=== PATIENT | female | born 1960 | race African-American/Black ===

== ENCOUNTER 2018-06-07 11:27 | Inpatient (IN) | payer MEDICARE, MEDICAID ==
[2018-06-07] VITALS (8 sets, daily range): BP systolic 132–165; BP diastolic 60–86
[~2018-06-07] VITALS: Ht 160 cm; Wt 49.4 kg
[~2018-06-07 11:27] MED LIST: GABAPENTIN100 MG ORAL; IBUPROFEN600 MG ORAL; LISINOPRIL10 MG ORAL; NORCO 5-325 TA1 EACH ORAL
[2018-06-07] MEDS: Albuterol ud Inhalation HHN SCH ×2 (11:51→12:10)
[2018-06-07] MEDS: Ipratropium 0.02% Inh Soln 2.5ml UD HHN SCH ×2 (11:51→12:10)
[2018-06-07] MEDS ORDERED: Sodium Chloride 500ML 500 ML IV ONE (13:00)
[2018-06-07] MEDS ORDERED: Albuterol ud Inhalation HHN ONE (13:00)
[2018-06-07] MEDS ORDERED: Ipratropium 0.02% Inh Soln 2.5ml UD HHN ONE (13:00)
[2018-06-07] MEDS ORDERED: TRUVADA 200 MG1 EAC1 ORAL (13:12)
--- NOTE | 2018-06-07 14:14 | Diagnostic Imaging Report ---
Indication: Dyspnea Comparison: None A single view chest radiograph was obtained. Findings: No definite infiltrate or pulmonary vascular congestion identified. The heart is enlarged. The aorta is mildly enlarged consistent with atherosclerotic vascular disease. The bones are osteopenic. Impression: No acute disease
[2018-06-07] MEDS ORDERED: ADALAT20 MG ORAL (14:47)
[2018-06-07] MEDS ORDERED: PREZISTA600 MG ORAL (14:47)
[2018-06-07] MEDS ORDERED: NORVIR100 MG ORAL (14:47)
[2018-06-07 15:26] LABS: ANION GAP 13 mmol/L (5-15); BLOOD UREA NITROGEN 14 mg/dL (7-18); CALCIUM 7.3 MG/DL (8.5-10.1); CARBON DIOXIDE 17 MMOL/L (21-32); CHLORIDE 111 MMOL/L (98-107); CREATININE 0.9 MG/DL (0.55-1.30); POTASSIUM 3.5 MMOL/L (3.5-5.1); SODIUM 141 MMOL/L (136-145)
[2018-06-07 15:30] LABS: ALANINE AMINOTRANSFERASE 33 U/L (12-78); ALBUMIN 2.3 G/DL (3.4-5.0); ALBUMIN/GLOBULIN RATIO 0.7 (1.0-2.7); ALKALINE PHOSPHATASE 34 U/L (46-116); ASPARTATE AMINO TRANSFERASE 26 U/L (15-37); BILIRUBIN,TOTAL < 0.1 MG/DL (0.2-1.0)
--- NOTE | 2018-06-07 15:41 | Emergency Room Report ---
History of Present Illness General Chief Complaint: Dyspnea/Respdistress Source: Patient Present Illness HPI 57-year-old female presents ED complaining of shortness of breath times one week. Notes history of COPD. Denies cough. Denies chest pain. Denies fevers or chills. No other aggravating relieving factors. Denies any other associated symptoms Allergies: Coded Allergies: SULFAMETHOXAZOLE (Verified Allergy, Unknown, 09/12/15) TRIMETHOPRIM (Verified Allergy, Unknown, 09/12/15) Patient History Past Medical History: HTN, COPD Past Surgical History: none Pertinent Family History: none Social History: Denies: smoking, alcohol use, drug use Last Menstrual Period: years ago Now: No Immunizations: UTD Reviewed Nursing Documentation: PMH: Agreed; PSxH: Agreed Nursing Documentation-PMH Hx Hypertension: Yes Hx COPD: Yes Review of Systems All Other Systems: negative except mentioned in HPI Physical Exam Vital Signs Date Time Temp Pulse Resp B/P (MAP) Pulse Ox O2 Delivery O2 Flow Rate FiO2 06/07/18 11:28 98.4 94 23 156/60 100 Room Air 98.4 06/07/18 11:51 21 Sp02 EP Interpretation: reviewed, normal General Appearance: no apparent distress, alert, GCS 15, non-toxic Head: normocephalic, atraumatic Eyes: bilateral eye normal inspection, bilateral eye PERRL ENT: hearing grossly normal, normal pharynx, no angioedema, normal voice Neck: full range of motion, supple/symm/no masses Respiratory: chest non-tender, decreased breath sounds, speaking full sentences , wheezing Cardiovascular #1: regular rate, rhythm, no edema Cardiovascular #2: 2+ carotid (R), 2+ carotid (L), 2+ radial (R), 2+ radial (L) , 2+ dorsalis pedis (R), 2+ dorsalis pedis (L) Gastrointestinal: normal bowel sounds, non tender, soft, non-distended, no guarding, no rebound Rectal: deferred Genitourinary: normal inspection, no CVA tenderness Musculoskeletal: back normal, gait/station normal, normal range of motion, non- tender Neurologic: alert, oriented x3, responsive, motor strength/tone normal, sensory intact, speech normal Psychiatric: judgement/insight normal, memory normal, mood/affect normal, no suicidal/homicidal ideation Reflexes: 3+ bicep (R), 3+ bicep (L), 3+ tricep (R), 3+ tricep (L), 3+ knee (R) , 3+ knee (L) Skin: normal color, no rash, warm/dry, well hydrated Lymphatic: no adenopathy Procedures Critical Care Time Critical Care Time i. I feel this is a highly complex case requiring extensive working including EKG/Rhythm strip, Xray/CT/US, Blood/urine lab work, repeat exams while in ED, and administration of strong opiates/narcotics for pain control, admission to hospital or close patient follow up. Total time: 30 min bedside evaluation and treatment excludes procedures (EKG). Reason for critical care: COPD, SOB, severe anemia Possible complications: hypotension, hypertension, MO, shock, arrhythmias, metabolic acidosis, end organ damage, respiratory failure. Interventions: labs, ekg, cxr, IVFs. PRBCs Course: patient presenting with SOB x 1 week. h/o COPD. symptoms not improved after nebs. labs drawn - Hb 2.9 (rechecked). h/o anemia. trop 0.055, denies chest pain. PRBCS ordered. Consultations: nursing staff, EMS, family Performed by: Dr Garcia Tolerated well condition = critical j. because of unstable vital signs this patient had a condition that could potentially threaten life or limb. I feel this is a critical patient who required my full attention while patient was considered critical. Total Critical Care Time excluding procedures was greater than 35 minutes Medical Decision Making Diagnostic Impression: Primary Impression: COPD (chronic obstructive pulmonary disease) Qualified Codes: J44.9 - Chronic obstructive pulmonary disease, unspecified Additional Impressions: Dyspnea Qualified Codes: R06.00 - Dyspnea, unspecified Severe anemia ER Course Hospital Course 64-year-old F presenting to ED with SOB. h/o COPD Differential diagnoses include: Pneumonia, CHF exacerbation, pneumothorax, fluid overload Clinical course Patient placed on stretcher. On potline monitor with stable vitals. After initial history and physical, I ordered nebulizer treatments. I ordered labs, IV fluids, EKG, chest x-ray, blood cultures, UA. after breathing treatments patient states she still feels SOB at rest Labs - no leukocytosis noted, hemoglobin/hematocrit 2.9/11.3, electrolytes okay , lactate okay, troponins 0.055 CXR - hyperinflated lungs. no infiltrates EKG - NSR, no acute ischemic changes interpreted by me CBC rechecked and confirms low Hb/HCt. PRBCs ordered. vitals stable Case discussed with Dr. Barksdale and he agreed to the patient to his service for further care and support I feel this is a highly complex case requiring extensive working including EKG/ Rhythm strip, Xray/CT/US, Blood/urine lab work, repeat exams while in ED, and administration of strong opiates/narcotics for pain control, admission to hospital or close patient follow up. Diagnosis - COPD exacerbation, dyspnea, severe anemia Patient admitted to ICU in critical condition Labs Test 06/07/18 14:46 06/07/18 15:35 06/07/18 17:50 06/07/18 20:22 Sodium Level 141 MMOL/L (136-145) Potassium Level 3.5 MMOL/L (3.5-5.1) Chloride Level 111 MMOL/L (98-107) Carbon Dioxide Level 17 MMOL/L (21-32) Anion Gap 13 mmol/L (5-15) Blood Urea Nitrogen 14 mg/dL (7-18) Creatinine 0.9 MG/DL (0.55-1.30) Estimat Glomerular Filtration Rate > 60 mL/min (>60) Glucose Level 131 MG/DL (74-106) Calcium Level 7.3 MG/DL (8.5-10.1) Total Bilirubin < 0.1 MG/DL (0.2-1.0) Aspartate Amino Transf (AST/SGOT) 26 U/L (15-37) Alanine Aminotransferase (ALT/SGPT) 33 U/L (12-78) Alkaline Phosphatase 34 U/L (46-116) Troponin I 0.055 ng/mL (0.000-0.056) Pro-B-Type Natriuretic Peptide 1878 pg/mL (0-125) Total Protein 5.6 G/DL (6.4-8.2) Albumin 2.3 G/DL (3.4-5.0) Globulin 3.3 g/dL Albumin/Globulin Ratio 0.7 (1.0-2.7) White Blood Count 3.5 K/UL (4.8-10.8) Red Blood Count 1.57 M/UL (4.20-5.40) Hemoglobin 2.9 G/DL (12.0-16.0) Hematocrit 11.3 % (37.0-47.0) Mean Corpuscular Volume 72 FL (80-99) Mean Corpuscular Hemoglobin 18.5 PG (27.0-31.0) Mean Corpuscular Hemoglobin Concent 25.8 G/DL (32.0-36.0) Red Cell Distribution Width 18.9 % (11.6-14.8) Platelet Count 189 K/UL (150-450) Mean Platelet Volume 8.0 FL (6.5-10.1) Neutrophils (%) (Auto) % (45.0-75.0) Lymphocytes (%) (Auto) % (20.0-45.0) Monocytes (%) (Auto) % (1.0-10.0) Eosinophils (%) (Auto) % (0.0-3.0) Basophils (%) (Auto) % (0.0-2.0) Differential Total Cells Counted 100 Neutrophils % (Manual) 79 % (45-75) Lymphocytes % (Manual) 18 % (20-45) Monocytes % (Manual) 3 % (1-10) Eosinophils % (Manual) 0 % (0-3) Basophils % (Manual) 0 % (0-2) Band Neutrophils 0 % (0-8) Nucleated Red Blood Cells 2 /100 WBC Platelet Estimate Adequate Platelet Morphology Normal Hypochromasia 3+ Anisocytosis 3+ Microcytosis 1+ Macrocytosis Occasional Prothrombin Time 10.0 SEC (9.30-11.50) Prothromb Time International Ratio 0.9 (0.9-1.1) Activated Partial Thromboplast Time 18 SEC (23-33) Urine Color Pale yellow Urine Appearance Clear Urine pH 6 (4.5-8.0) Urine Specific [place] 1.010 (1.005-1.035) Urine Protein 1+ (NEGATIVE) Urine Glucose (UA) Negative (NEGATIVE) Urine Ketones Negative (NEGATIVE) Urine Occult Blood Negative (NEGATIVE) Urine Nitrite Negative (NEGATIVE) Urine Bilirubin Negative (NEGATIVE) Urine Urobilinogen Normal MG/DL (0.0-1.0) Urine Leukocyte Esterase 2+ (NEGATIVE) Urine RBC 0-2 /HPF (0 - 2) Urine WBC 5-10 /HPF (0 - 2) Urine Squamous Epithelial Cells Few /LPF (NONE/OCC) Urine Bacteria Moderate /HPF (NONE) Urine Mucus Few /LPF (NONE/OCC) Lactic Acid Level 2.70 mmol/L (0.4-2.0) 2.90 mmol/L (0.66-2.22) Test 06/08/18 06:14 EKG Diagnostic Results Rate: normal Rhythm: NSR ST Segments: no acute changes ASA given to the pt in ED: No Rhythm Strip Diag. Results EP Interpretation: yes Rhythm: NSR, no PVC's Chest X-Ray Diagnostic Results Chest X-Ray Diagnostic Results : Chest X-Ray Ordered: Yes # of Views/Limited/Complete: 1 View Indication: Shortness of Breath EP Interpretation: Yes Interpretation: no consolidation, no effusion, no pneumothorax, other - cardiomegaly Impression: Other - cardiomegaly Electronically Signed by: Electronically signed by Jay Garcia MD Last Vital Signs Date Time Temp Pulse Resp B/P (MAP) Pulse Ox O2 Delivery O2 Flow Rate FiO2 06/07/18 12:18 95 19 100 Room Air 21 06/07/18 12:07 98.4 156/60 98.4 Status: improved Disposition: ADMITTED INPATIENT Condition: Critical Referrals: NON PHYSICIAN (PCP) Jay Garcia MD Jun 07, 2018 15:41
[2018-06-07 16:02] LABS: HEMATOCRIT 11.3 % (37.0-47.0); MEAN CORPUSCULAR VOLUME 72 FL (80-99); PLATELET COUNT 189 K/UL (150-450); RED BLOOD COUNT 1.57 M/UL (4.20-5.40); RED CELL DISTRIBUTION WIDTH 18.9 % (11.6-14.8); WHITE BLOOD COUNT 3.5 K/UL (4.8-10.8)
[2018-06-07 16:09] LABS: INR 0.9 (0.9-1.1)
[2018-06-07 16:14] LABS: HEMOGLOBIN 2.9 G/DL (12.0-16.0)
[2018-06-07] MEDS ORDERED: LISINOPRIL10 MG ORAL (17:38)
[2018-06-07] MEDS ORDERED: PREZISTA800 MG ORAL (17:38)
[2018-06-07] MEDS ORDERED: NIFEDIPINE ER60 M2 ORAL (17:41)
[2018-06-07] MEDS ORDERED: LISINOPRIL20 MG ORAL (17:54)
[2018-06-07] MEDS ORDERED: NORCO 10-325 T1 EACH ORAL (17:55)
[2018-06-07] MEDS ORDERED: TYLENOL EXTRA500 MG ORAL (17:58)
[2018-06-07] MEDS ORDERED: VITAMIN B-12100 MCG ORAL (17:58)
[2018-06-07 18:26] LABS: APPEARANCE,URINE CLEAR; BILIRUBIN, URINE NEGATIVE (NEGATIVE); COLOR,URINE PALE YELLOW; GLUCOSE, URINE (UA) NEGATIVE (NEGATIVE); KETONES,URINE NEGATIVE (NEGATIVE); LEUKOCYTE ESTERASE ,URINE 2+ (NEGATIVE); NITRITE,URINE NEGATIVE (NEGATIVE); PH,URINE 6 (4.5-8.0); PROTEIN,URINE 1+ (NEGATIVE); UROBILINOGEN,URINE NORMAL MG/DL (0.0-1.0)
[2018-06-07] MEDS ORDERED: Miralax 17gm pkt ORAL PRN (22:00)
[2018-06-07] MEDS ORDERED: Zolpidem 5mg tab ORAL PRN (22:00)
--- NOTE | 2018-06-07 23:15 | History and Physical Report ---
DATE OF ADMISSION: 06/07/2018 CHIEF COMPLAINT AND REASON FOR HOSPITALIZATION: The patient admitted with weakness and severe anemia. HISTORY OF PRESENT ILLNESS: The patient presents with a hemoglobin of 2.9, no obvious bleeding according to the patient. She has had shortness of breath worsening over the last two months and worsening in the last day generalized weakness. She said she had a bout of gastritis two months ago but this improved. The patient has a history of hypertension, HIV positive. She states she has had iron-deficiency for sometime in the past and has craving for ice. PAST SURGICAL HISTORY: None. ALLERGIES: None known. MEDICATIONS: Include Truvada, Prezista, Norvir, lisinopril, nifedipine, and B12. HABITS: She is a current smoker. Alcohol occasional. Drugs, none. SYSTEM REVIEW: HEAD, EYES, EARS, NOSE, AND THROAT: Vision and hearing is good. ENDOCRINE: No diabetes or thyroid disease. PULMONARY: History of shortness of breath and COPD. No history of tuberculosis. CARDIAC: No angina, [place], or palpitations. GASTROINTESTINAL: No GI bleeding that she is aware of although she has had gastritis. No dark stools. RECTAL: Done in the emergency room showed hemorrhoid and trace positive stool but not grossly melanotic. GENITOURINARY: No dysuria, hematuria, or kidney stones. NEUROLOGIC: No CVA, syncope, or seizures. INFECTIOUS: History of HIV positive. No hepatitis. She has missed her HIV medicines for number of days. PHYSICAL EXAMINATION: GENERAL: The patient is alert lady, lying in bed, in no acute distress. VITAL SIGNS: Temperature was 99.8 and repeat 100.7, pulse 96, respirations 24, blood pressure 147/62, pulse oximetry 96% on room air. HEENT: Sclerae are nonicteric. Her conjunctivae were pale. Throat clear. NECK: No adenopathy. LUNGS: Clear. HEART: Regular rhythm. No murmur. ABDOMEN: Soft. I am unable to feel liver or spleen. EXTREMITIES: No edema, cyanosis or clubbing. RECTAL: Done by the emergency room physician as above. LABORATORY AND DIAGNOSTIC DATA: Pertinent labs show hemoglobin of 2.9, MCV is 72, white count 3.5, platelet 189. Chemistries normal except for glucose 131. Lactic acid 2.7 and troponin 0.055. IMPRESSION: 1. Anemia likely combination of iron-deficiency from gastrointestinal bleeding and possible effect of human immunodeficiency virus and human immunodeficiency virus medications, other etiologies possible. 2. Human immunodeficiency virus. 3. Shortness of breath secondary to anemia and chronic obstructive pulmonary disease. 4. Elevated troponin likely demand ischemia. PLAN: The patient has agreed for transfusion. We will also give her iron and supportive care. We will follow up with serial laboratories and make further recommendations as her condition warrants. Alec Barksdale M.D. DR: Yelitza JOB#: [id number] CC:
[2018-06-08] VITALS (14 sets, daily range): BP systolic 140–174; BP diastolic 74–100
[2018-06-08 06:32] LABS: HEMATOCRIT 22.9 % (37.0-47.0); MEAN CORPUSCULAR VOLUME 80 FL (80-99); PLATELET COUNT 166 K/UL (150-450); RED BLOOD COUNT 2.85 M/UL (4.20-5.40); RED CELL DISTRIBUTION WIDTH 19.3 % (11.6-14.8); WHITE BLOOD COUNT 2.6 K/UL (4.8-10.8)
[2018-06-08 07:02] LABS: HEMOGLOBIN 7.1 G/DL (12.0-16.0)
[2018-06-08 07:03] LABS: ALANINE AMINOTRANSFERASE 31 U/L (12-78); ALBUMIN 2.3 G/DL (3.4-5.0); ALBUMIN/GLOBULIN RATIO 0.6 (1.0-2.7); ALKALINE PHOSPHATASE 33 U/L (46-116); ANION GAP 12 mmol/L (5-15); ASPARTATE AMINO TRANSFERASE 23 U/L (15-37); BILIRUBIN,TOTAL 0.1 MG/DL (0.2-1.0); BLOOD UREA NITROGEN 12 mg/dL (7-18); CALCIUM 7.8 MG/DL (8.5-10.1); CARBON DIOXIDE 17 MMOL/L (21-32); CHLORIDE 109 MMOL/L (98-107); CREATININE 0.8 MG/DL (0.55-1.30); FERRITIN 9 NG/ML (8-388); POTASSIUM 3.7 MMOL/L (3.5-5.1); SODIUM 138 MMOL/L (136-145)
[2018-06-08 07:40] LABS: % IRON SATURATION 3 % (15-50); IRON 12 ug/dL (50-175); TOTAL IRON BINDING CAPACITY 359 ug/dL (250-450)
--- NOTE | 2018-06-08 12:22 | General Progress Note ---
Assessment/Plan Problem List: (1) GI bleed ICD Codes: K92.2 - Gastrointestinal hemorrhage, unspecified SNOMED: 47998936 (2) Iron (Fe) deficiency anemia ICD Codes: D50.9 - Iron deficiency anemia, unspecified SNOMED: 41320758 (3) Dyspnea ICD Codes: R06.00 - Dyspnea, unspecified SNOMED: 751229009 Qualifiers: Qualified Codes: R06.00 - Dyspnea, unspecified (4) COPD (chronic obstructive pulmonary disease) ICD Codes: J44.9 - Chronic obstructive pulmonary disease, unspecified SNOMED: 46129580 Qualifiers: Qualified Codes: J44.9 - Chronic obstructive pulmonary disease, unspecified (5) Severe anemia ICD Codes: D64.9 - Anemia, unspecified SNOMED: 932246755 Subjective Constitutional: Reports: weakness HEENT: Reports: no symptoms Cardiovascular: Reports: no symptoms Respiratory: Reports: SOB with excertion Gastrointestinal/Abdominal: Reports: no symptoms Genitourinary: Reports: no symptoms Endocrine: Reports: no symptoms Hematologic/Lymphatic: Reports: anemia Allergies: Coded Allergies: SULFAMETHOXAZOLE (Verified Allergy, Unknown, 09/12/15) TRIMETHOPRIM (Verified Allergy, Unknown, 09/12/15) Objective Last 24 Hour Vital Signs Date Time Temp Pulse Resp B/P (MAP) Pulse Ox O2 Delivery O2 Flow Rate FiO2 06/08/18 10:00 77 17 156/77 (103) 100 74 06/08/18 09:29 80 174/92 06/08/18 09:00 82 17 174/92 (119) 100 74 06/08/18 08:00 Nasal Cannula 2.0 06/08/18 08:00 98.8 67 17 140/81 (100) 100 98.8 74 06/08/18 08:00 88 06/08/18 07:00 81 21 160/100 (120) 100 74 06/08/18 06:00 77 20 173/90 (117) 100 74 06/08/18 05:00 78 21 146/79 (101) 100 74 06/08/18 04:00 74 21 160/74 (102) 100 74 06/08/18 04:00 Nasal Cannula 2.0 06/08/18 04:00 74 06/08/18 03:00 77 19 167/79 (108) 100 77 7/10/18 02:00 75 19 160/79 (106) 100 77 06/08/18 01:00 77 19 163/92 (115) 100 77 06/08/18 00:00 Nasal Cannula 2.0 06/08/18 00:00 98.4 79 21 157/96 (116) 100 98.4 78 06/08/18 00:00 79 06/07/18 23:00 78 21 132/86 (101) 100 78 06/07/18 22:00 81 21 165/63 (97) 100 84 06/07/18 21:00 98.6 84 21 151/71 (97) 100 98.6 84 06/07/18 21:00 94 06/07/18 21:00 Nasal Cannula 2.0 06/07/18 20:30 99.1 93 22 150/72 100 Room Air 21 99.1 06/07/18 20:05 99.1 93 22 150/72 100 Room Air 99.1 06/07/18 19:22 100.7 06/07/18 18:55 100.7 91 20 100.7 06/07/18 18:40 99.8 91 18 99.8 06/07/18 18:00 96 24 147/62 96 Room Air 06/07/18 16:00 96 23 148/65 100 Room Air 06/07/18 14:00 98.8 23 149/76 100 Room Air 21 98.8 Intake and Output 06/07/18 06/08/18 19:00 07:00 Intake Total 100 ml 1180 ml Output Total 1150 ml Balance 100 ml 30 ml Intake Oral 100 ml 280 ml Blood Product 900 ml Output Urine Total 1150 ml Laboratory Tests 06/07/18 14:46: Sodium Level 141, Potassium Level 3.5, Chloride Level 111H, Carbon Dioxide Level 17L, Anion Gap 13, Blood Urea Nitrogen 14, Creatinine 0.9, Estimat Glomerular Filtration Rate > 60, Glucose Level 131H, Calcium Level 7.3L, Total Bilirubin < 0.1L, Aspartate Amino Transf (AST/SGOT) 26, Alanine Aminotransferase (ALT/SGPT) 33, Alkaline Phosphatase 34L, Troponin I 0.055, Pro- B-Type Natriuretic Peptide 1878H, Total Protein 5.6L, Albumin 2.3L, Globulin 3.3 , Albumin/Globulin Ratio 0.7L 06/07/18 15:35: White Blood Count 3.5L, Red Blood Count 1.57L, Hemoglobin 2.9*L, Hematocrit 11.3L, Mean Corpuscular Volume 72L, Mean Corpuscular Hemoglobin 18.5L, Mean Corpuscular Hemoglobin Concent 25.8L, Red Cell Distribution Width 18.9H, Platelet Count 189, Mean Platelet Volume 8.0, Neutrophils (%) (Auto) , Lymphocytes (%) (Auto) , Monocytes (%) (Auto) , Eosinophils (%) (Auto) , Basophils (%) (Auto) , Differential Total Cells Counted 100, Neutrophils % ( Manual) 79H, Lymphocytes % (Manual) 18L, Monocytes % (Manual) 3, Eosinophils % ( Manual) 0, Basophils % (Manual) 0, Band Neutrophils 0, Nucleated Red Blood Cells 2, Platelet Estimate Adequate, Platelet Morphology Normal, Hypochromasia 3 +, Anisocytosis 3+, Microcytosis 1+, Macrocytosis Occasional, Prothrombin Time 10.0, Prothromb Time International Ratio 0.9, Activated Partial Thromboplast Time 18L 06/07/18 17:50: Urine Color Pale yellow, Urine Appearance Clear, Urine pH 6, Urine Specific [place] 1.010, Urine Protein 1+H, Urine Glucose (UA) Negative, Urine Ketones Negative, Urine Occult Blood Negative, Urine Nitrite Negative, Urine Bilirubin Negative, Urine Urobilinogen Normal, Urine Leukocyte Esterase 2+H, Urine RBC 0-2 , Urine WBC 5-10H, Urine Squamous Epithelial Cells Few, Urine Bacteria ModerateH , Urine Mucus FewH, Lactic Acid Level 2.70H 06/07/18 20:22: Lactic Acid Level 2.90H 06/08/18 06:14: White Blood Count [Pending], Red Blood Count 2.85L, Hemoglobin 7.1#L, Hematocrit 22.9#L, Mean Corpuscular Volume 80#, Mean Corpuscular Hemoglobin 25.1L, Mean Corpuscular Hemoglobin Concent 31.1L, Red Cell Distribution Width 19.3H, Platelet Count 166, Mean Platelet Volume 8.4, Neutrophils (%) (Auto) , Lymphocytes (%) (Auto) , Monocytes (%) (Auto) , Eosinophils (%) (Auto) , Basophils (%) (Auto) , Differential Total Cells Counted 100, Neutrophils % ( Manual) 51, Lymphocytes % (Manual) 38, Monocytes % (Manual) 8, Eosinophils % ( Manual) 1, Basophils % (Manual) 1, Band Neutrophils 1, Lymphocytes [Pending], Nucleated Red Blood Cells 6, Platelet Estimate Adequate, Platelet Morphology Normal, Hypochromasia 3+, Anisocytosis 2+, Reticulocyte Count 1.3, Sodium Level 138, Potassium Level 3.7, Chloride Level 109H, Carbon Dioxide Level 17L, Anion Gap 12, Blood Urea Nitrogen 12, Creatinine 0.8, Estimat Glomerular Filtration Rate > 60, Glucose Level 122H, Lactic Acid Level 1.10, Calcium Level 7.8L, Iron Level 12L, Total Iron Binding Capacity 359, Percent Iron Saturation 3L, Unsaturated Iron Binding 347H, Ferritin 9, Total Bilirubin 0.1L, Aspartate Amino Transf (AST/SGOT) 23, Alanine Aminotransferase (ALT/SGPT) 31, Alkaline Phosphatase 33L, Total Protein 6.2L, Albumin 2.3L, Globulin 3.9, Albumin/ Globulin Ratio 0.6L, Vitamin B12 Level 337, Thyroid Stimulating Hormone (TSH) 0.453, Percent CD3 Cells [Pending], Absolute CD3 Count [Pending], Percent CD4 Cells [Pending], Absolute CD4 Count [Pending], T-Lymphocyte CD4/CD8 Ratio [ Pending], Percent CD8 Cells [Pending], Absolute CD8 Count [Pending] Height (Feet): 5 Height (Inches): 3.00 Weight (Pounds): 117 General Appearance: no apparent distress EENT: normal ENT inspection Neck: normal alignment Cardiovascular: normal rate, regular rhythm Respiratory/Chest: lungs clear Abdomen: soft, no organomegaly Extremities: non-tender Edema: no edema noted Arm (L), no edema noted Arm (R), no edema noted Leg (L), no edema noted Leg (R), no edema noted Pedal (L), no edema noted Pedal (R), no edema noted Generalized MARYANN HOBSON Jun 08, 2018 12:22
--- NOTE | 2018-06-08 12:44 | GI Initial Consult Note ---
History of Present Illness General Date patient seen: Jun 08, 2018 Time patient seen: 12:00 Reason for Hospitalization: Dyspnea/Respdistress Referring physician: MARYANN HOBSON Reason for Consultation: GI BLEED Present Illness HPI The patient presents with a hemoglobin of 2.9, no obvious bleeding according to the patient. She has had shortness of breath worsening over the last two months and worsening in the last day generalized weakness. She said she had a bout of gastritis two months ago but this improved. The patient has a history of hypertension, HIV positive. She states she has had iron-deficiency for sometime in the past and has craving for ice. GI consulted for severe anemia requiring blood transfusion. Pt was seen, downgraded from ICU to tele, awake A&Ox4 NAD with no active s/sx of N/V/D. The patient presented with severe anemia requiring blood transfusion with no obvious signs or symptoms of bleeding. No noted anticoag medication in reconciliation Denies any drug, tobacco or ETOH use. Patient stated she had an EGD in the past, but unsure of results. No history of colonoscopy. Home Meds Reported Medications Acetaminophen* (TYLENOL EXTRA STRENGTH*) 500 Mg Tablet, 500 MG ORAL Q6H PRN for Mild Pain/Temp > 100.5 06/07/18 Cyanocobalamin (Vitamin B-12) 100 Mcg Tablet, 100 MCG ORAL DAILY 06/07/18 Hydrocodone Bit/Acetaminophen 10-325* (NORCO 10-325*) 1 Each Tablet, 1 TAB ORAL Q6H PRN for For Pain PRN PAIN 06/07/18 Lisinopril (LISINOPRIL*) 20 Mg Tablet, 20 MG ORAL DAILY 06/07/18 Nifedipine* (NIFEDIPINE ER*) 60 Mg Tablet.er, 60 MG ORAL DAILY 06/07/18 Darunavir Ethanolate (PREZISTA) 800 Mg Tablet, 800 MG ORAL DAILY 06/07/18 Ritonavir* (NORVIR*) 100 Mg Capsule, 100 MG ORAL DAILY, #60 CAP 06/07/18 Emtricitabine/Tenofovir 200-300MG* (TRUVADA 200-300MG*) 1 Each Tablet, 1 TAB ORAL DAILY, TAB 06/07/18 Discontinued Scripts Gabapentin* (GABAPENTIN*) 100 Mg Capsule, 100 MG ORAL THREE TIMES A DAY, #30 CAP Prov:Sadia Benavides 06/25/16 Ibuprofen* (MOTRIN*) 600 Mg Tablet, 600 MG ORAL Q8H PRN for For Pain, #20 TAB 0 Refills Prov:Mike Leyva MD 09/12/15 Med list reviewed/reconciled: Yes Allergies: Coded Allergies: SULFAMETHOXAZOLE (Verified Allergy, Unknown, 09/12/15) TRIMETHOPRIM (Verified Allergy, Unknown, 09/12/15) Patient History History Provided By: Patient, Medical Record PMH Narrative See HPI. Social History: Denies: smoking, alcohol use, drug use, other Review of Systems All Other Systems: negative except mentioned in HPI Physical Exam Vital Signs Date Time Temp Pulse Resp B/P (MAP) Pulse Ox O2 Delivery O2 Flow Rate FiO2 06/07/18 11:28 98.4 94 23 156/60 100 Room Air 98.4 06/07/18 11:51 21 06/07/18 21:00 2.0 Sp02 EP Interpretation: reviewed, normal Labs Laboratory Tests Test 06/07/18 14:46 06/07/18 15:35 06/07/18 17:50 06/07/18 20:22 Sodium Level 141 MMOL/L (136-145) Potassium Level 3.5 MMOL/L (3.5-5.1) Chloride Level 111 MMOL/L (98-107) H Carbon Dioxide Level 17 MMOL/L (21-32) L Anion Gap 13 mmol/L (5-15) Blood Urea Nitrogen 14 mg/dL (7-18) Creatinine 0.9 MG/DL (0.55-1.30) Estimat Glomerular Filtration Rate > 60 mL/min (>60) Glucose Level 131 MG/DL (74-106) H Calcium Level 7.3 MG/DL (8.5-10.1) L Total Bilirubin < 0.1 MG/DL (0.2-1.0) L Aspartate Amino Transf (AST/SGOT) 26 U/L (15-37) Alanine Aminotransferase (ALT/SGPT) 33 U/L (12-78) Alkaline Phosphatase 34 U/L (46-116) L Troponin I 0.055 ng/mL (0.000-0.056) Pro-B-Type Natriuretic Peptide 1878 pg/mL (0-125) H Total Protein 5.6 G/DL (6.4-8.2) L Albumin 2.3 G/DL (3.4-5.0) L Globulin 3.3 g/dL Albumin/Globulin Ratio 0.7 (1.0-2.7) L White Blood Count 3.5 K/UL (4.8-10.8) L Red Blood Count 1.57 M/UL (4.20-5.40) L Hemoglobin 2.9 G/DL (12.0-16.0) *L Hematocrit 11.3 % (37.0-47.0) L Mean Corpuscular Volume 72 FL (80-99) L Mean Corpuscular Hemoglobin 18.5 PG (27.0-31.0) L Mean Corpuscular Hemoglobin Concent 25.8 G/DL (32.0-36.0) L Red Cell Distribution Width 18.9 % (11.6-14.8) H Platelet Count 189 K/UL (150-450) Mean Platelet Volume 8.0 FL (6.5-10.1) Neutrophils (%) (Auto) % (45.0-75.0) Lymphocytes (%) (Auto) % (20.0-45.0) Monocytes (%) (Auto) % (1.0-10.0) Eosinophils (%) (Auto) % (0.0-3.0) Basophils (%) (Auto) % (0.0-2.0) Differential Total Cells Counted 100 Neutrophils % (Manual) 79 % (45-75) H Lymphocytes % (Manual) 18 % (20-45) L Monocytes % (Manual) 3 % (1-10) Eosinophils % (Manual) 0 % (0-3) Basophils % (Manual) 0 % (0-2) Band Neutrophils 0 % (0-8) Nucleated Red Blood Cells 2 /100 WBC Platelet Estimate Adequate Platelet Morphology Normal Hypochromasia 3+ Anisocytosis 3+ Microcytosis 1+ Macrocytosis Occasional Prothrombin Time 10.0 SEC (9.30-11.50) Prothromb Time International Ratio 0.9 (0.9-1.1) Activated Partial Thromboplast Time 18 SEC (23-33) L Urine Color Pale yellow Urine Appearance Clear Urine pH 6 (4.5-8.0) Urine Specific [place] 1.010 (1.005-1.035) Urine Protein 1+ (NEGATIVE) H Urine Glucose (UA) Negative (NEGATIVE) Urine Ketones Negative (NEGATIVE) Urine Occult Blood Negative (NEGATIVE) Urine Nitrite Negative (NEGATIVE) Urine Bilirubin Negative (NEGATIVE) Urine Urobilinogen Normal MG/DL (0.0-1.0) Urine Leukocyte Esterase 2+ (NEGATIVE) H Urine RBC 0-2 /HPF (0 - 2) Urine WBC 5-10 /HPF (0 - 2) H Urine Squamous Epithelial Cells Few /LPF (NONE/OCC) Urine Bacteria Moderate /HPF (NONE) H Urine Mucus Few /LPF (NONE/OCC) H Lactic Acid Level 2.70 mmol/L (0.4-2.0) H 2.90 mmol/L (0.66-2.22) H Test 06/08/18 06:14 White Blood Count Pending Red Blood Count 2.85 M/UL (4.20-5.40) L Hemoglobin 7.1 G/DL (12.0-16.0) #L Hematocrit 22.9 % (37.0-47.0) #L Mean Corpuscular Volume 80 FL (80-99) # Mean Corpuscular Hemoglobin 25.1 PG (27.0-31.0) L Mean Corpuscular Hemoglobin Concent 31.1 G/DL (32.0-36.0) L Red Cell Distribution Width 19.3 % (11.6-14.8) H Platelet Count 166 K/UL (150-450) Mean Platelet Volume 8.4 FL (6.5-10.1) Neutrophils (%) (Auto) % (45.0-75.0) Lymphocytes (%) (Auto) % (20.0-45.0) Monocytes (%) (Auto) % (1.0-10.0) Eosinophils (%) (Auto) % (0.0-3.0) Basophils (%) (Auto) % (0.0-2.0) Differential Total Cells Counted 100 Neutrophils % (Manual) 51 % (45-75) Lymphocytes % (Manual) 38 % (20-45) Monocytes % (Manual) 8 % (1-10) Eosinophils % (Manual) 1 % (0-3) Basophils % (Manual) 1 % (0-2) Band Neutrophils 1 % (0-8) Lymphocytes Pending Nucleated Red Blood Cells 6 /100 WBC Platelet Estimate Adequate Platelet Morphology Normal Hypochromasia 3+ Anisocytosis 2+ Reticulocyte Count 1.3 % (0.0-2.0) Sodium Level 138 MMOL/L (136-145) Potassium Level 3.7 MMOL/L (3.5-5.1) Chloride Level 109 MMOL/L (98-107) H Carbon Dioxide Level 17 MMOL/L (21-32) L Anion Gap 12 mmol/L (5-15) Blood Urea Nitrogen 12 mg/dL (7-18) Creatinine 0.8 MG/DL (0.55-1.30) Estimat Glomerular Filtration Rate > 60 mL/min (>60) Glucose Level 122 MG/DL (74-106) H Lactic Acid Level 1.10 mmol/L (0.4-2.0) Calcium Level 7.8 MG/DL (8.5-10.1) L Iron Level 12 ug/dL (50-175) L Total Iron Binding Capacity 359 ug/dL (250-450) Percent Iron Saturation 3 % (15-50) L Unsaturated Iron Binding 347 ug/dL (112-346) H Ferritin 9 NG/ML (8-388) Total Bilirubin 0.1 MG/DL (0.2-1.0) L Aspartate Amino Transf (AST/SGOT) 23 U/L (15-37) Alanine Aminotransferase (ALT/SGPT) 31 U/L (12-78) Alkaline Phosphatase 33 U/L (46-116) L Total Protein 6.2 G/DL (6.4-8.2) L Albumin 2.3 G/DL (3.4-5.0) L Globulin 3.9 g/dL Albumin/Globulin Ratio 0.6 (1.0-2.7) L Vitamin B12 Level 337 PG/ML (193-986) Thyroid Stimulating Hormone (TSH) 0.453 uiU/mL (0.358-3.740) Percent CD3 Cells Pending Absolute CD3 Count Pending Percent CD4 Cells Pending Absolute CD4 Count Pending T-Lymphocyte CD4/CD8 Ratio Pending Percent CD8 Cells Pending Absolute CD8 Count Pending General Appearance: well appearing, no apparent distress, alert Head: normocephalic EENT: PERRL/EOMI, normal ENT inspection Neck: supple Respiratory: normal breath sounds, no respiratory distress Cardiovascular: normal rate Gastrointestinal: normal inspection, non tender, soft, normal bowel sounds, non -distended Rectal: deferred Genitourinary: no CVA tenderness Musculoskeletal: normal inspection, back normal Neurologic: normal inspection, alert, oriented x3, responsive Psychiatric: normal inspection, judgement/insight normal, memory normal Skin: normal inspection, normal color, no rash, warm/dry, palpation normal, well hydrated Lymphatic: normal inspection, no adenopathy Current Medications Current Medications Medications (Trade) Dose Ordered Sig/Paul Route PRN Reason Start Time Stop Time Status Last Admin Dose Admin Acetaminophen (Tylenol) 650 mg Q4H PRN ORAL Mild Pain/Temp > 100.5 06/07/18 22:00 07/07/18 21:59 Bisacodyl (Dulcolax) 10 mg ONCE ONCE ORAL 06/08/18 16:00 06/08/18 16:01 UNV Diphenhydramine HCl (Benadryl) 25 mg EVERY 4 HOURS PRN ORAL Itching 06/07/18 22:00 07/07/18 21:59 06/08/18 03:03 Nifedipine (Procardia XL) 60 mg DAILY ORAL 06/08/18 09:00 07/08/18 08:59 06/08/18 09:29 Pantoprazole (Protonix) 40 mg BID ORAL 06/07/18 22:15 07/07/18 22:14 06/08/18 09:29 Polyethylene Glycol (Miralax) 17 gm TID PRN ORAL Constipation 06/07/18 22:00 07/07/18 21:59 Polyethylene Glycol/ Electrolytes (Nulytely) 4,000 ml ONCE ONCE ORAL 06/08/18 16:00 06/08/18 16:01 UNV Sodium Chloride 1,000 ml @ 10 mls/hr Q24H ONCE IV 06/07/18 16:26 06/08/18 16:25 Sodium Phosphate (Fleet's Sodium Phosl Enema) 133 ml ONCE ONCE RECTAL 06/08/18 23:00 06/08/18 23:01 UNV Zolpidem Tartrate (Ambien) 5 mg HSPRN PRN ORAL Insomnia 06/07/18 22:00 06/14/18 21:59 GI: Plan Problems: (1) Severe anemia (2) GI bleed (3) Iron (Fe) deficiency anemia (4) Dyspnea Plan EGD / colonoscopy scheduled for tomorrow. - CLD, NPO @ [facility] - hold all blood thinners tonight. will follow with complete note. Updated @ 2100. Per RN report, the patient began to exhibit dyspnea after taking 2 cups of the bowel prep around 1600. Placed on 4LNC, duonebs, stat ABG noted with compensated respiratory alkalosis. d/w with RN patient now on 2LNC, taken approximately only 10% of the bowel prep. we will reschedule procedure >> dc bowel prep, will restart when respiratory status is stable maintain patient on CLD, NPO @ [facility] for possible EGD only tomorrow. anemia work up fu OB stool r/o GI bleed monitor H&H, prn transfusions ppi venofer fu labs Discussed with Dr. Contreras. Thank you for this patient referral, we will follow. The patient was seen and examined at bedside and all new and available data was reviewed in the patients chart. I agree with the above findings, impression and plan. (Patient seen earlier today. Signature stamp does not reflect patient encounter time.). - MD Mely ÁlvarezCobre Valley Regional Medical CenterEtienne WELDING MACHINE OPERATOR [employer] [facility] Jun 08, 2018 12:44
--- NOTE | 2018-06-08 14:13 | Cardiology Report ---
APPROVED REPORT EKG Measurement Heart [id number] Normal sinus rhythm Possible Left atrial enlargement Septal infarct, age undetermined Abnormal ECG
[2018-06-08] MEDS ORDERED: Bisacodyl EC 5mg tab ORAL SCH (16:00)
[2018-06-08] MEDS ORDERED: Nulytely 4L ORAL ONE (16:00)
[2018-06-08] MEDS ORDERED: Albuterol/Ipratropium 3ml neb ONE (17:20)
[2018-06-08] MEDS: Albuterol/Ipratropium 3ml neb HHN SCH ×3 (17:26→23:20)
[2018-06-08] MEDS ORDERED: LORazepam Inj 2mg/ml 1ml IV PRN (20:15)
[2018-06-08] MEDS: Iron Sucrose 100 MG in NS 55 ML IV SCH (22:00)
[2018-06-08] MEDS ORDERED: Fleet's Enema 133ml RECTAL SCH (23:00)
--- NOTE | 2018-06-08 23:15 | Consultation ---
DATE OF CONSULTATION: 06/08/2018 INFECTIOUS DISEASES CONSULTATION CONSULTING PHYSICIAN: Ortiz Fried M.D. REFERRING PHYSICIAN: Alec Barksdale M.D. REASON FOR CONSULTATION: HIV. HISTORY OF PRESENTING ILLNESS: This is a 57-year-old lady with history of human immunodeficiency virus with unknown T-cell count. She says she has been off of medications for a long time, who came in with anemia as well as increasing shortness of breath and cough. She also had a recent bout of gastritis. An Infectious Diseases consultation has been obtained for human immunodeficiency virus. PAST MEDICAL HISTORY: 1. History of human immunodeficiency virus. 2. History of hypertension. 3. History of gastritis. 4. Hemorrhoids. MEDICATIONS: As an inpatient, she is on Dulcolax, polyethylene glycol, nifedipine, Protonix, Tylenol, Benadryl, Ambien, and MiraLAX. ALLERGIES: Bactrim. SOCIAL HISTORY: She is a smoker. She used to drink alcohol until recently. No history of drug use. FAMILY HISTORY: Noncontributory. REVIEW OF SYSTEMS: RESPIRATORY: No fever. No chills. She does have a dry cough. She has shortness of breath. No chest pain. CARDIAC: No chest pain. No palpitations. No dizziness. No syncope. GASTROINTESTINAL: No nausea. No vomiting. No abdominal pain or diarrhea. PHYSICAL EXAMINATION: VITAL SIGNS: Temperature of 98.8, T-max of 100.7, pulse of 77, respiratory rate 17, blood pressure 156/77, and O2 saturation of 100%. HEENT: Pupils equally reactive to light and accommodation. Mouth appears clean without thrush. NECK: Supple. No adenopathy. No JVD. CARDIOVASCULAR: Regular rate and rhythm. No murmurs. LUNGS: Clear to auscultation bilaterally. No crackles. No wheezes. ABDOMEN: Soft and nontender. No organomegaly. EXTREMITIES: No cyanosis, no clubbing, no edema. LABORATORY AND DIAGNOSTIC DATA: White count 2.6, hemoglobin 7.9, hematocrit 22.9, hemoglobin of 2.9 on 06/07/2018, hematocrit of 11.3 on 06/07/2018, MCV of 80, and platelet count of 166,000 with neutrophils of 51%. Sodium 138, potassium 3.7, chloride 109, bicarb 17, BUN 12, creatinine 0.8, glucose 122, and calcium 7.8. Total bilirubin 0.1. AST 23. ALT 31, and alkaline phosphatase 33. Total protein 6.2. Albumin 2.3. UA is showing 5 to 10 white cells. CD4 count is pending. Urine cultures are negative. Chest x-ray showed no acute disease. ASSESSMENT: 1. This is a 57-year-old lady with history of human immunodeficiency virus with unknown T-cell count, who comes in with severe anemia, would like to rule out a parvovirus infection as a possibility. The patient has been off the human immunodeficiency virus medication for a long time. 2. History of hemorrhoids. 3. History of hypertension. 4. We would like to rule out gastrointestinal bleeding as a possibility. PLAN: 1. Consider Hematology evaluation. 2. Consider GI evaluation. 3. T-cell count is pending. 4. Continue off anti-retrovirals for now. I would like to thank, Dr. Alec Barksdale, for this consultation. Ortiz Fried M.D. DR: MANJINDER JOB#: [id number] CC: Alec Barksdale M.D.; Fax#: [phone]
[2018-06-09] VITALS (10 sets, daily range): BP systolic 124–148; BP diastolic 65–86
[2018-06-09] MEDS: Albuterol/Ipratropium 3ml neb HHN SCH ×7 (02:08→22:53)
--- NOTE | 2018-06-09 06:54 | Anethesia Preoperative Eval ---
Anesthesia Pre-op PMH/ROS General Date of Evaluation: Jun 09, 2018 Time of Evaluation: 06:52 Anesthesiologist: jaskaran ASA Score: ASA 3 Mallampati Score Class I : Soft palate, uvula, fauces, pillars visible Class II: Soft palate, uvula, fauces visible Class III: Soft palate, base of uvula visible Class IV: Only hard plate visible Mallampati Classification: Class II Surgeon: kristal Diagnosis: gi bleed, anemia Anesthesia History: none Social History: current smoker Family History: no anesthesia problems Allergies: Coded Allergies: SULFAMETHOXAZOLE (Verified Allergy, Unknown, 09/12/15) TRIMETHOPRIM (Verified Allergy, Unknown, 09/12/15) Medications: see eMAR Past Medical History Pulmonary: Reports: COPD, other - dyspnea Gastrointestinal/Genitourinary: Reports: other - gi bleed Hematology/Immune: Reports: anemia Musculoskeletal/Integumentary: Reports: other - left knee fracture, right sciatica Anesthesia Pre-op Phys. Exam Physician Exam Last Vital Signs Date Time Temp Pulse Resp B/P (MAP) Pulse Ox O2 Delivery O2 Flow Rate FiO2 06/09/18 04:00 77 06/09/18 04:00 98.5 20 124/65 (84) 98 98.5 06/09/18 02:10 Nasal Cannula 06/08/18 23:25 2.0 28 Constitutional: NAD Neurologic: CN 2-12 intact Cardiovascular: RRR Respiratory: CTA Gastrointestinal: S/NT/ND Airway Exam Mallampati Score: Class II MO: limited Neck: supple TMD: 2fb ROM: limited Teeth: loose Anesthesia Pre-op A/P Labs Labs Test 06/07/18 14:46 06/07/18 15:35 06/07/18 17:50 06/07/18 20:22 Sodium Level 141 MMOL/L (136-145) Potassium Level 3.5 MMOL/L (3.5-5.1) Chloride Level 111 MMOL/L (98-107) Carbon Dioxide Level 17 MMOL/L (21-32) Anion Gap 13 mmol/L (5-15) Blood Urea Nitrogen 14 mg/dL (7-18) Creatinine 0.9 MG/DL (0.55-1.30) Estimat Glomerular Filtration Rate > 60 mL/min (>60) Glucose Level 131 MG/DL (74-106) Calcium Level 7.3 MG/DL (8.5-10.1) Total Bilirubin < 0.1 MG/DL (0.2-1.0) Aspartate Amino Transf (AST/SGOT) 26 U/L (15-37) Alanine Aminotransferase (ALT/SGPT) 33 U/L (12-78) Alkaline Phosphatase 34 U/L (46-116) Troponin I 0.055 ng/mL (0.000-0.056) Pro-B-Type Natriuretic Peptide 1878 pg/mL (0-125) Total Protein 5.6 G/DL (6.4-8.2) Albumin 2.3 G/DL (3.4-5.0) Globulin 3.3 g/dL Albumin/Globulin Ratio 0.7 (1.0-2.7) White Blood Count 3.5 K/UL (4.8-10.8) Red Blood Count 1.57 M/UL (4.20-5.40) Hemoglobin 2.9 G/DL (12.0-16.0) Hematocrit 11.3 % (37.0-47.0) Mean Corpuscular Volume 72 FL (80-99) Mean Corpuscular Hemoglobin 18.5 PG (27.0-31.0) Mean Corpuscular Hemoglobin Concent 25.8 G/DL (32.0-36.0) Red Cell Distribution Width 18.9 % (11.6-14.8) Platelet Count 189 K/UL (150-450) Mean Platelet Volume 8.0 FL (6.5-10.1) Neutrophils (%) (Auto) % (45.0-75.0) Lymphocytes (%) (Auto) % (20.0-45.0) Monocytes (%) (Auto) % (1.0-10.0) Eosinophils (%) (Auto) % (0.0-3.0) Basophils (%) (Auto) % (0.0-2.0) Differential Total Cells Counted 100 Neutrophils % (Manual) 79 % (45-75) Lymphocytes % (Manual) 18 % (20-45) Monocytes % (Manual) 3 % (1-10) Eosinophils % (Manual) 0 % (0-3) Basophils % (Manual) 0 % (0-2) Band Neutrophils 0 % (0-8) Nucleated Red Blood Cells 2 /100 WBC Platelet Estimate Adequate Platelet Morphology Normal Hypochromasia 3+ Anisocytosis 3+ Microcytosis 1+ Macrocytosis Occasional Prothrombin Time 10.0 SEC (9.30-11.50) Prothromb Time International Ratio 0.9 (0.9-1.1) Activated Partial Thromboplast Time 18 SEC (23-33) Urine Color Pale yellow Urine Appearance Clear Urine pH 6 (4.5-8.0) Urine Specific [place] 1.010 (1.005-1.035) Urine Protein 1+ (NEGATIVE) Urine Glucose (UA) Negative (NEGATIVE) Urine Ketones Negative (NEGATIVE) Urine Occult Blood Negative (NEGATIVE) Urine Nitrite Negative (NEGATIVE) Urine Bilirubin Negative (NEGATIVE) Urine Urobilinogen Normal MG/DL (0.0-1.0) Urine Leukocyte Esterase 2+ (NEGATIVE) Urine RBC 0-2 /HPF (0 - 2) Urine WBC 5-10 /HPF (0 - 2) Urine Squamous Epithelial Cells Few /LPF (NONE/OCC) Urine Bacteria Moderate /HPF (NONE) Urine Mucus Few /LPF (NONE/OCC) Lactic Acid Level 2.70 mmol/L (0.4-2.0) 2.90 mmol/L (0.66-2.22) Test 06/08/18 06:14 06/08/18 10:50 06/08/18 18:25 White Blood Count 2.6 K/UL (4.8-10.8) Red Blood Count 2.85 M/UL (4.20-5.40) Hemoglobin 7.1 G/DL (12.0-16.0) Hematocrit 22.9 % (37.0-47.0) Mean Corpuscular Volume 80 FL (80-99) Mean Corpuscular Hemoglobin 25.1 PG (27.0-31.0) Mean Corpuscular Hemoglobin Concent 31.1 G/DL (32.0-36.0) Red Cell Distribution Width 19.3 % (11.6-14.8) Platelet Count 166 K/UL (150-450) Mean Platelet Volume 8.4 FL (6.5-10.1) Neutrophils (%) (Auto) % (45.0-75.0) Lymphocytes (%) (Auto) % (20.0-45.0) Monocytes (%) (Auto) % (1.0-10.0) Eosinophils (%) (Auto) % (0.0-3.0) Basophils (%) (Auto) % (0.0-2.0) Differential Total Cells Counted 100 Neutrophils % (Manual) 51 % (45-75) Lymphocytes % (Manual) 38 % (20-45) Monocytes % (Manual) 8 % (1-10) Eosinophils % (Manual) 1 % (0-3) Basophils % (Manual) 1 % (0-2) Band Neutrophils 1 % (0-8) Nucleated Red Blood Cells 6 /100 WBC Other Cell Type Pathologist comment Platelet Estimate Adequate Platelet Morphology Normal Hypochromasia 3+ Anisocytosis 2+ Reticulocyte Count 1.3 % (0.0-2.0) Sodium Level 138 MMOL/L (136-145) Potassium Level 3.7 MMOL/L (3.5-5.1) Chloride Level 109 MMOL/L (98-107) Carbon Dioxide Level 17 MMOL/L (21-32) Anion Gap 12 mmol/L (5-15) Blood Urea Nitrogen 12 mg/dL (7-18) Creatinine 0.8 MG/DL (0.55-1.30) Estimat Glomerular Filtration Rate > 60 mL/min (>60) Glucose Level 122 MG/DL (74-106) Lactic Acid Level 1.10 mmol/L (0.4-2.0) Calcium Level 7.8 MG/DL (8.5-10.1) Iron Level 12 ug/dL (50-175) Total Iron Binding Capacity 359 ug/dL (250-450) Percent Iron Saturation 3 % (15-50) Unsaturated Iron Binding 347 ug/dL (112-346) Ferritin 9 NG/ML (8-388) Total Bilirubin 0.1 MG/DL (0.2-1.0) Aspartate Amino Transf (AST/SGOT) 23 U/L (15-37) Alanine Aminotransferase (ALT/SGPT) 31 U/L (12-78) Alkaline Phosphatase 33 U/L (46-116) Lactate Dehydrogenase 323 U/L (81-234) Total Protein 6.2 G/DL (6.4-8.2) Albumin 2.3 G/DL (3.4-5.0) Globulin 3.9 g/dL Albumin/Globulin Ratio 0.6 (1.0-2.7) Vitamin B12 Level 337 PG/ML (193-986) Thyroid Stimulating Hormone (TSH) 0.453 uiU/mL (0.358-3.740) Arterial Blood pH 7.447 (7.350-7.450) Arterial Blood Partial Pressure CO2 23.6 mmHg (35.0-45.0) Arterial Blood Partial Pressure O2 73.1 mmHg (75.0-100.0) Arterial Blood HCO3 15.9 mmol/L (22.0-26.0) Arterial Blood Oxygen Saturation 94.3 % (92.0-98.0) Arterial Blood Base Excess -7.3 Sam Test Positive Risk Assessment & Plan Assessment: asa3 Plan: mac Status Change Before Surgery: No Pre-Antibiotics Drug: Sahra Castillo MD Jun 09, 2018 06:54
[2018-06-09] MEDS ORDERED: Atropine Inj 1mg/10ml Syr IV PRN (07:00)
[2018-06-09] MEDS ORDERED: fentaNYL 100 mcg/2 mL IV PRN (07:00)
[2018-06-09] MEDS ORDERED: Midazolam 2mg/2ml Inj IVP PRN (07:00)
[2018-06-09] MEDS ORDERED: DiphenhydrAMINE 50mg/ml Inj IVP PRN (07:00)
[2018-06-09] MEDS ORDERED: Labetalol 5mg/ml 20ml vial IV PRN (07:00)
[2018-06-09 08:55] LABS: HEMATOCRIT 25.3 % (37.0-47.0); HEMOGLOBIN 7.7 G/DL (12.0-16.0); MEAN CORPUSCULAR VOLUME 81 FL (80-99); PLATELET COUNT 175 K/UL (150-450); RED BLOOD COUNT 3.13 M/UL (4.20-5.40); RED CELL DISTRIBUTION WIDTH 19.1 % (11.6-14.8); WHITE BLOOD COUNT 3.3 K/UL (4.8-10.8)
[2018-06-09 09:01] LABS: INR 0.9 (0.9-1.1)
[2018-06-09 09:08] LABS: ANION GAP 11 mmol/L (5-15); BLOOD UREA NITROGEN 9 mg/dL (7-18); CARBON DIOXIDE 20 MMOL/L (21-32); CHLORIDE 110 MMOL/L (98-107); CREATININE 0.8 MG/DL (0.55-1.30); POTASSIUM 3.3 MMOL/L (3.5-5.1); SODIUM 141 MMOL/L (136-145)
--- NOTE | 2018-06-09 09:47 | Pre-Procedure Note/Attestation ---
Pre-Procedure Note/Attestation Complete Prior to Procedure Planned Procedure: not applicable Procedure Narrative: egd Indications for Procedure Pre-Operative Diagnosis: anemia Attestation I attest that I discussed the nature of the procedure; its benefits; risks and complications; and alternatives (and the risks and benefits of such alternatives ), prior to the procedure, with the patient (or the patient's legal healthcare representative). I attest that, if there was a reasonable possibility of needing a blood transfusion, the patient (or the patient's legal healthcare representative) was given the [facility] standardized written summary, pursuant to the Rashawn [place] Blood Safety Act ([place] Health and Safety Code # 1645, as amended). I attest that I re-evaluated the patient just prior to the surgery and that there has been no change in the patient's H&P, except as documented below: Hector Contreras MD Jun 09, 2018 09:47
[2018-06-09] MEDS ORDERED: Lidocaine 1% MPF 10mg/ml 5ml ONE (10:00)
[2018-06-09] MEDS ORDERED: Propofol 200mg/20ml IV ONE (10:00)
--- NOTE | 2018-06-09 10:04 | Endoscopy Procedure Note ---
Endoscopy Procedure Note General Indication for Procedure: anemia Procedures Performed: EGD Operative Findings/Diagnosis: severe gastritis unusuall Specimen: yes Pt Tolerated Procedure Well: Yes Estimated Blood Loss: none Anesthesia Anesthesiologist: austyn Anesthesia: MAC Inserted Devices Implant(s) used?: No GI Core Measures 50 yrs or older w/o bx or poly: Not Applicable 10yrs. F/U not recommended: Not Applicable Hector Contreras MD Jun 09, 2018 10:04
[2018-06-09] MEDS ORDERED: Polyethylene Glycol 238gm bottle ORAL SCH (10:15)
--- NOTE | 2018-06-09 11:00 | Immediate Post-Op Evaluation ---
Immediate Post-Op Evalulation Immediate Post-Op Evalulation Procedure: egd Date of Evaluation: Jun 09, 2018 Time of Evaluation: 10:25 IV Fluids: 100ml 0.9ns Blood Products: none Estimated Blood Loss: negligible Blood Pressure Systolic: 128 Blood Pressure Diastolic: 86 Pulse Rate: 82 Respiratory Rate: 18 O2 Sat by Pulse Oximetry: 99 Temperature (Fahrenheit): 98.4 Pain Score (1-10): 0 Nausea: No Vomiting: No Complications none Patient Status: awake, reacts, patent Hydration Status: adequate Drug: Sahra Castillo MD Jun 09, 2018 11:00
--- NOTE | 2018-06-09 11:02 | 48 Hour Post Anesthesia Eval ---
Post Anesthesia Evaluation Procedure: egd Date of Evaluation: Jun 09, 2018 Time of Evaluation: 10:27 Blood Pressure Systolic: 144 0: 80 Pulse Rate: 72 Respiratory Rate: 18 Temperature (Fahrenheit): 98.4 O2 Sat by Pulse Oximetry: 99 Airway: patent Nausea: No Vomiting: No Pain Intensity: 0 Hydration Status: adequate Cardiopulmonary Status: stable Mental Status/LOC: patient returned to baseline Post-Anesthesia Complications: none Follow-up care needed: N/A Sahra Dickens MD Jun 09, 2018 11:02
--- NOTE | 2018-06-09 16:00 | Procedure Note ---
DATE OF PROCEDURE: 06/09/2018 SURGEON: Hector Contreras M.D. PROCEDURE: Upper endoscopy with biopsy. ANESTHESIA: Per Dr. Dickens. REFERRING PHYSICIAN: Alec Barksdale M.D. INSTRUMENT: Olympus adult flexible upper endoscope. INDICATION: Anemia. The procedure, risks, benefits, and possible consequences, including hemorrhage, aspiration, perforation and infection, and alternative treatments, were explained to the patient/legal guardian by Dr. Hector Contreras and the patient/legal guardian understood and accepted these risks. DESCRIPTION OF PROCEDURE: After informed consent was obtained and the patient was adequately sedated, Olympus upper endoscope was advanced from the mouth into the second portion of the duodenum and retroflexion was performed stomach. The patient has evidence of unusual gastritis, especially in the angularis area in the distal body. I am not sure exactly what is it. There is edema and erythema of the mucosal with enlargement of the folds, which was biopsied. The rest of the exam grossly within normal limits. RECOMMENDATIONS: 1. Follow up biopsies and treat accordingly. 2. We will plan for colonoscopy tomorrow given this profound anemia. No upper GI bleeding source. I want to thank Dr. Barksdale for this kind referral. Hector Contreras M.D. DR: DEVAN JOB#: [id number] CC: Alec Barksdale M.D.; Fax#: [phone]
[2018-06-09] MEDS ORDERED: Tubing IV Blood Pump IV ONE (17:04)
--- NOTE | 2018-06-09 17:47 | General Progress Note ---
Assessment/Plan Problem List: (1) GI bleed ICD Codes: K92.2 - Gastrointestinal hemorrhage, unspecified SNOMED: 58385235 (2) Iron (Fe) deficiency anemia ICD Codes: D50.9 - Iron deficiency anemia, unspecified SNOMED: 08540523 (3) Dyspnea ICD Codes: R06.00 - Dyspnea, unspecified SNOMED: 533043720 Qualifiers: Qualified Codes: R06.00 - Dyspnea, unspecified (4) COPD (chronic obstructive pulmonary disease) ICD Codes: J44.9 - Chronic obstructive pulmonary disease, unspecified SNOMED: 70563333 Qualifiers: Qualified Codes: J44.9 - Chronic obstructive pulmonary disease, unspecified (5) Severe anemia ICD Codes: D64.9 - Anemia, unspecified SNOMED: 931014135 Assessment/Plan egd large folds, gastritis, colon pending , feels better Subjective Constitutional: Reports: weakness HEENT: Reports: no symptoms Cardiovascular: Reports: no symptoms Respiratory: Reports: cough Gastrointestinal/Abdominal: Reports: no symptoms Genitourinary: Reports: no symptoms Neurologic/Psychiatric: Reports: no symptoms Endocrine: Reports: no symptoms Hematologic/Lymphatic: Reports: anemia Allergies: Coded Allergies: SULFAMETHOXAZOLE (Verified Allergy, Unknown, 09/12/15) TRIMETHOPRIM (Verified Allergy, Unknown, 09/12/15) Objective Last 24 Hour Vital Signs Date Time Temp Pulse Resp B/P (MAP) Pulse Ox O2 Delivery O2 Flow Rate FiO2 06/09/18 16:00 81 06/09/18 16:00 99.1 88 20 139/71 (93) 100 99.1 88 06/09/18 15:30 Room Air 06/09/18 15:30 Room Air 06/09/18 12:00 98.0 79 20 136/72 (93) 100 98.0 87 06/09/18 12:00 71 06/09/18 11:02 209.1 72 18 99 06/09/18 11:00 88 18 100 Room Air 21 06/09/18 11:00 21 06/09/18 11:00 85 18 100 Room Air 21 06/09/18 11:00 209.1 82 18 99 06/09/18 10:35 98.8 74 17 138/82 100 Nasal Cannula 3 98.8 06/09/18 10:23 72 15 144/80 100 Nasal Cannula 3 06/09/18 10:18 70 17 137/78 100 Nasal Cannula 3 06/09/18 10:13 98.4 82 18 128/86 97 Nasal Cannula 3 98.4 06/09/18 09:11 75 130/77 06/09/18 09:00 Nasal Cannula 2.0 06/09/18 08:00 97.9 75 21 136/77 (96) 100 97.9 87 06/09/18 08:00 78 06/09/18 07:27 75 18 99 Nasal Cannula 2.0 28 06/09/18 07:22 75 18 99 Nasal Cannula 2.0 28 06/09/18 07:22 Nasal Cannula 2.0 28 06/09/18 07:22 99 Nasal Cannula 2.0 28 06/09/18 04:00 77 06/09/18 04:00 98.5 87 20 124/65 (84) 98 98.5 87 06/09/18 02:10 Nasal Cannula 06/09/18 02:09 Nasal Cannula 06/09/18 00:00 99.6 82 22 132/71 (91) 99 99.6 82 06/09/18 00:00 84 06/08/18 23:25 76 18 99 Nasal Cannula 2.0 28 06/08/18 23:15 78 20 98 Nasal Cannula 2.0 28 06/08/18 21:00 Nasal Cannula 2.0 06/08/18 20:00 98.8 78 20 147/82 (103) 100 98.8 78 06/08/18 20:00 82 06/08/18 19:56 80 20 99 Nasal Cannula 2.0 28 06/08/18 19:43 79 24 98 Nasal Cannula 2.0 28 06/08/18 19:30 98 Nasal Cannula 2.0 28 06/08/18 19:30 Nasal Cannula 2.0 28 Intake and Output 06/08/18 06/09/18 19:00 07:00 Intake Total 360 ml Output Total 50 ml Balance 310 ml Intake Oral 360 ml Output Urine Total 50 ml # Voids 2 Laboratory Tests 06/08/18 18:25: Arterial Blood pH 7.447, Arterial Blood Partial Pressure CO2 23.6*L, Arterial Blood Partial Pressure O2 73.1L, Arterial Blood HCO3 15.9L, Arterial Blood Oxygen Saturation 94.3, Arterial Blood Base Excess -7.3, Sam Test Positive 06/09/18 07:00: White Blood Count 3.3L, Red Blood Count 3.13L, Hemoglobin 7.7L, Hematocrit 25.3L , Mean Corpuscular Volume 81, Mean Corpuscular Hemoglobin 24.6L, Mean Corpuscular Hemoglobin Concent 30.4L, Red Cell Distribution Width 19.1H, Platelet Count 175, Mean Platelet Volume 8.3, Neutrophils (%) (Auto) , Lymphocytes (%) (Auto) , Monocytes (%) (Auto) , Eosinophils (%) (Auto) , Basophils (%) (Auto) , Differential Total Cells Counted 100, Neutrophils % ( Manual) 70, Lymphocytes % (Manual) 21, Monocytes % (Manual) 6, Eosinophils % ( Manual) 0, Basophils % (Manual) 1, Band Neutrophils 2, Nucleated Red Blood Cells 1, Platelet Estimate Adequate, Platelet Morphology Normal, Hypochromasia 2 +, Anisocytosis 2+, Prothrombin Time 9.7, Prothromb Time International Ratio 0.9 , Activated Partial Thromboplast Time 23, Sodium Level 141, Potassium Level 3.3L , Chloride Level 110H, Carbon Dioxide Level 20L, Anion Gap 11, Blood Urea Nitrogen 9, Creatinine 0.8, Estimat Glomerular Filtration Rate > 60, Glucose Level 91, Calcium Level 8.0L Height (Feet): 5 Height (Inches): 3.00 Weight (Pounds): 109 General Appearance: no apparent distress, alert EENT: normal ENT inspection Neck: non-tender Cardiovascular: normal rate Respiratory/Chest: lungs clear, normal breath sounds Abdomen: non tender, soft Edema: no edema noted Arm (L), no edema noted Arm (R), no edema noted Leg (L), no edema noted Leg (R), no edema noted Pedal (L), no edema noted Pedal (R), no edema noted Generalized MARYANN HOBSON Jun 09, 2018 17:47
[2018-06-09] MEDS: Iron Sucrose 100 MG in NS 55 ML IV SCH (21:00)
[2018-06-10] VITALS (10 sets, daily range): BP systolic 129–155; BP diastolic 66–94
[2018-06-10] MEDS: Albuterol/Ipratropium 3ml neb HHN SCH ×3 (03:00→11:00)
--- NOTE | 2018-06-10 06:38 | Anethesia Preoperative Eval ---
Anesthesia Pre-op PMH/ROS General Date of Evaluation: Jun 10, 2018 Time of Evaluation: 06:33 Anesthesiologist: jaskaran ASA Score: ASA 3 Mallampati Score Class I : Soft palate, uvula, fauces, pillars visible Class II: Soft palate, uvula, fauces visible Class III: Soft palate, base of uvula visible Class IV: Only hard plate visible Mallampati Classification: Class II Surgeon: kristal Diagnosis: gi bleed, anemia Surgical Procedure: colonoscopy Anesthesia History: none Social History: current smoker Family History: no anesthesia problems Allergies: Coded Allergies: SULFAMETHOXAZOLE (Verified Allergy, Unknown, 09/12/15) TRIMETHOPRIM (Verified Allergy, Unknown, 09/12/15) Medications: see eMAR Past Medical History Cardiovascular: Reports: HTN Pulmonary: Reports: COPD Gastrointestinal/Genitourinary: Reports: other - gi bleed Hematology/Immune: Reports: other - hiv Anesthesia Pre-op Phys. Exam Physician Exam Last Vital Signs Date Time Temp Pulse Resp B/P (MAP) Pulse Ox O2 Delivery O2 Flow Rate FiO2 06/10/18 04:00 98.0 77 20 146/84 (104) 100 98.0 77 06/10/18 03:05 Room Air 06/09/18 21:00 2.0 06/09/18 20:00 21 Constitutional: NAD Neurologic: CN 2-12 intact Cardiovascular: RRR Respiratory: CTA Gastrointestinal: S/NT/ND Airway Exam Mallampati Score: Class II MO: full Neck: supple TMD: 2fb ROM: full Anesthesia Pre-op A/P Labs Hematology Test 06/09/18 07:00 White Blood Count 3.3 K/UL (4.8-10.8) L Red Blood Count 3.13 M/UL (4.20-5.40) L Hemoglobin 7.7 G/DL (12.0-16.0) L Hematocrit 25.3 % (37.0-47.0) L Mean Corpuscular Volume 81 FL (80-99) Mean Corpuscular Hemoglobin 24.6 PG (27.0-31.0) L Mean Corpuscular Hemoglobin Concent 30.4 G/DL (32.0-36.0) L Red Cell Distribution Width 19.1 % (11.6-14.8) H Platelet Count 175 K/UL (150-450) Mean Platelet Volume 8.3 FL (6.5-10.1) Neutrophils (%) (Auto) % (45.0-75.0) Lymphocytes (%) (Auto) % (20.0-45.0) Monocytes (%) (Auto) % (1.0-10.0) Eosinophils (%) (Auto) % (0.0-3.0) Basophils (%) (Auto) % (0.0-2.0) Differential Total Cells Counted 100 Neutrophils % (Manual) 70 % (45-75) Lymphocytes % (Manual) 21 % (20-45) Monocytes % (Manual) 6 % (1-10) Eosinophils % (Manual) 0 % (0-3) Basophils % (Manual) 1 % (0-2) Band Neutrophils 2 % (0-8) Nucleated Red Blood Cells 1 /100 WBC Platelet Estimate Adequate Platelet Morphology Normal Hypochromasia 2+ Anisocytosis 2+ Coagulation Test 06/09/18 07:00 Prothrombin Time 9.7 SEC (9.30-11.50) Prothromb Time International Ratio 0.9 (0.9-1.1) Activated Partial Thromboplast Time 23 SEC (23-33) Chemistry Test 06/09/18 07:00 Sodium Level 141 MMOL/L (136-145) Potassium Level 3.3 MMOL/L (3.5-5.1) L Chloride Level 110 MMOL/L (98-107) H Carbon Dioxide Level 20 MMOL/L (21-32) L Anion Gap 11 mmol/L (5-15) Blood Urea Nitrogen 9 mg/dL (7-18) Creatinine 0.8 MG/DL (0.55-1.30) Estimat Glomerular Filtration Rate > 60 mL/min (>60) Glucose Level 91 MG/DL (74-106) Calcium Level 8.0 MG/DL (8.5-10.1) L Risk Assessment & Plan Assessment: asa3 Plan: mac Status Change Before Surgery: No Pre-Antibiotics Drug: Sahra Castillo MD Jun 10, 2018 06:38
[2018-06-10] MEDS ORDERED: Labetalol 5mg/ml 20ml vial IV PRN (06:45)
[2018-06-10] MEDS ORDERED: DiphenhydrAMINE 50mg/ml Inj IVP PRN (06:45)
[2018-06-10] MEDS ORDERED: Atropine Inj 1mg/10ml Syr IV PRN (06:45)
[2018-06-10] MEDS ORDERED: fentaNYL 100 mcg/2 mL IV PRN (06:45)
[2018-06-10] MEDS ORDERED: Midazolam 2mg/2ml Inj IVP PRN (06:45)
[2018-06-10] MEDS ORDERED: OMEPRAZOLE40 M1 ORAL (08:08)
[2018-06-10 08:32] LABS: HEMATOCRIT 25.3 % (37.0-47.0); HEMOGLOBIN 7.8 G/DL (12.0-16.0); MEAN CORPUSCULAR VOLUME 80 FL (80-99); PLATELET COUNT 175 K/UL (150-450); RED BLOOD COUNT 3.15 M/UL (4.20-5.40); RED CELL DISTRIBUTION WIDTH 19.6 % (11.6-14.8); WHITE BLOOD COUNT 2.7 K/UL (4.8-10.8)
[2018-06-10 08:52] LABS: ANION GAP 11 mmol/L (5-15); BLOOD UREA NITROGEN 7 mg/dL (7-18); CALCIUM 8.2 MG/DL (8.5-10.1); CARBON DIOXIDE 19 MMOL/L (21-32); CHLORIDE 109 MMOL/L (98-107); CREATININE 0.7 MG/DL (0.55-1.30); POTASSIUM 4.2 MMOL/L (3.5-5.1); SODIUM 139 MMOL/L (136-145)
[2018-06-10] MEDS ORDERED: Lidocaine 1% MPF 10mg/ml 5ml ONE (09:30)
[2018-06-10] MEDS ORDERED: D5W 110ml ONE (09:30)
[2018-06-10] MEDS ORDERED: Propofol 200mg/20ml IV ONE (09:30)
--- NOTE | 2018-06-10 10:32 | Pre-Procedure Note/Attestation ---
Pre-Procedure Note/Attestation Complete Prior to Procedure Planned Procedure: not applicable Procedure Narrative: colonoscopy Indications for Procedure Pre-Operative Diagnosis: anemia Attestation I attest that I discussed the nature of the procedure; its benefits; risks and complications; and alternatives (and the risks and benefits of such alternatives ), prior to the procedure, with the patient (or the patient's legal signs and displays sales representative). I attest that, if there was a reasonable possibility of needing a blood transfusion, the patient (or the patient's legal signs and displays sales representative) was given the [facility] standardized written summary, pursuant to the Rashawn Jim Blood Safety Act ([place] Health and Safety Code # 1645, as amended). I attest that I re-evaluated the patient just prior to the surgery and that there has been no change in the patient's H&P, except as documented below: Colton Lang MD Jun 10, 2018 10:32
--- NOTE | 2018-06-10 11:11 | Infectious Diseases Prog Note ---
Assessment/Plan Assessment/Plan antibiotics : none A 1. human immunodeficiency virus, cd4 95 2. severe anemia 3. History of hypertension. 4. rule out gastrointestinal bleeding PLAN: 1. Continue off antibiotics Subjective Constitutional: Denies: fever, chills Respiratory: Reports: shortness of breath; Denies: dry cough Gastrointestinal/Abdominal: Denies: nausea, vomiting, diarrhea Musculoskeletal: Denies: pain Allergies: Coded Allergies: SULFAMETHOXAZOLE (Verified Allergy, Unknown, 09/12/15) TRIMETHOPRIM (Verified Allergy, Unknown, 09/12/15) Objective Vital Signs Last 24 Hour Vital Signs Date Time Temp Pulse Resp B/P (MAP) Pulse Ox O2 Delivery O2 Flow Rate FiO2 06/10/18 09:09 72 155/78 06/10/18 09:00 Nasal Cannula 2.0 06/10/18 08:38 72 20 99 Room Air 06/10/18 08:33 75 20 98 Room Air 06/10/18 08:32 Room Air 06/10/18 08:32 98 Room Air 06/10/18 08:00 98.1 72 21 155/78 (103) 97 98.1 72 06/10/18 04:00 98.0 77 20 146/84 (104) 100 98.0 77 06/10/18 04:00 76 06/10/18 03:05 Room Air 06/10/18 03:05 Room Air 06/10/18 00:00 98.2 83 20 153/94 (113) 100 98.2 83 06/10/18 00:00 77 06/09/18 22:53 Room Air 06/09/18 22:53 Room Air 06/09/18 21:00 Nasal Cannula 2.0 06/09/18 20:00 76 18 99 Room Air 06/09/18 20:00 99.7 74 20 148/80 (102) 100 99.7 74 06/09/18 20:00 83 06/09/18 19:51 Room Air 06/09/18 19:51 76 18 99 Room Air 06/09/18 19:51 99 Room Air 06/09/18 16:00 81 06/09/18 16:00 99.1 88 20 139/71 (93) 100 99.1 88 06/09/18 15:30 Room Air 06/09/18 15:30 Room Air 06/09/18 12:00 98.0 79 20 136/72 (93) 100 98.0 87 06/09/18 12:00 71 Height (Feet): 5 Height (Inches): 3.00 Weight (Pounds): 109 Respiratory/Chest: lungs clear Cardiovascular: normal rate, regular rhythm, no gallop/murmur Abdomen: soft, non tender Extremities: no edema Microbiology Date/Time Source Procedure Growth Status 06/07/18 17:50 Blood Blood Culture - Preliminary NO GROWTH AFTER 48 HOURS Resulted 06/07/18 17:45 Blood Blood Culture - Preliminary NO GROWTH AFTER 48 HOURS Resulted 06/07/18 17:50 Urine,Clean Catch Urine Culture - Final Mixed Gram Positive Organism Complete 06/07/18 19:45 Rectum VRE Culture - Final NO VANCOMYCIN RESISTANT ENTEROCOCCUS ... Complete Laboratory Tests Test 06/10/18 06:30 White Blood Count 2.7 K/UL (4.8-10.8) L Red Blood Count 3.15 M/UL (4.20-5.40) L Hemoglobin 7.8 G/DL (12.0-16.0) L Hematocrit 25.3 % (37.0-47.0) L Mean Corpuscular Volume 80 FL (80-99) Mean Corpuscular Hemoglobin 24.6 PG (27.0-31.0) L Mean Corpuscular Hemoglobin Concent 30.7 G/DL (32.0-36.0) L Red Cell Distribution Width 19.6 % (11.6-14.8) H Platelet Count 175 K/UL (150-450) Mean Platelet Volume 8.6 FL (6.5-10.1) Neutrophils (%) (Auto) % (45.0-75.0) Lymphocytes (%) (Auto) % (20.0-45.0) Monocytes (%) (Auto) % (1.0-10.0) Eosinophils (%) (Auto) % (0.0-3.0) Basophils (%) (Auto) % (0.0-2.0) Neutrophils % (Manual) Pending Lymphocytes % (Manual) Pending Platelet Estimate Pending Platelet Morphology Pending Sodium Level 139 MMOL/L (136-145) Potassium Level 4.2 MMOL/L (3.5-5.1) Chloride Level 109 MMOL/L (98-107) H Carbon Dioxide Level 19 MMOL/L (21-32) L Anion Gap 11 mmol/L (5-15) Blood Urea Nitrogen 7 mg/dL (7-18) Creatinine 0.7 MG/DL (0.55-1.30) Estimat Glomerular Filtration Rate > 60 mL/min (>60) Glucose Level 78 MG/DL (74-106) Calcium Level 8.2 MG/DL (8.5-10.1) L Current Medications Medications (Trade) Dose Ordered Sig/Paul Route PRN Reason Start Time Stop Time Status Last Admin Dose Admin Acetaminophen (Tylenol) 650 mg Q4H PRN ORAL Mild Pain/Temp > 100.5 06/07/18 22:00 07/07/18 21:59 Al Hydroxide/Mg Hydroxide (Mylanta) 15 ml Q1H PRN ORAL gi upset 06/10/18 06:45 06/10/18 15:00 Albuterol/ Ipratropium (Albuterol/ Ipratropium) 3 ml Q4HRT HHN 06/08/18 19:00 06/13/18 18:59 06/10/18 08:35 Atropine Sulfate (Atropine) 0.5 mg Q5M PRN IV bpm less than 45 06/10/18 06:45 06/10/18 16:00 Diphenhydramine HCl (Benadryl) 25 mg EVERY 4 HOURS PRN ORAL Itching 06/07/18 22:00 07/07/18 21:59 06/08/18 03:03 Diphenhydramine HCl (Benadryl) 25 mg Q15M PRN IVP Itching 06/10/18 06:45 06/10/18 16:00 Fentanyl Citrate (Sublimaze 100 mcg/2 mL) 25 mcg Q10M PRN IV Moderate Pain (Pain Scale 4-6) 06/10/18 06:45 06/10/18 15:00 Iron Sucrose 100 mg/Sodium Chloride 60 ml @ 240 mls/hr BEDTIME IV 06/08/18 22:00 06/12/18 21:14 06/09/18 21:00 Labetalol HCl (Normodyne) 5 mg Q10M PRN IV SBP>160 or____/ DBP>90 or 06/09/18 07:00 06/10/18 12:00 Labetalol HCl (Normodyne) 5 mg Q10M PRN IV SBP>160 or____/ DBP>90 or 06/10/18 06:45 06/10/18 15:00 Lorazepam (Ativan 2mg/ml 1ml) 0.5 mg Q4H PRN IV For Anxiety 06/08/18 20:15 06/15/18 20:14 Midazolam HCl (Versed 2mg/2ml vial) 1 mg Q15M PRN IVP For Anxiety 06/10/18 06:45 06/10/18 15:00 Nifedipine (Procardia XL) 60 mg DAILY ORAL 06/08/18 09:00 07/08/18 08:59 06/10/18 09:09 Ondansetron HCl (Zofran) 4 mg Q1H PRN IVP Nausea & Vomiting 06/10/18 06:45 06/10/18 15:00 Pantoprazole (Protonix) 40 mg BID ORAL 06/07/18 22:15 07/07/18 22:14 06/10/18 09:08 Polyethylene Glycol (Miralax) 17 gm TID PRN ORAL Constipation 06/07/18 22:00 07/07/18 21:59 Potassium Chloride 30 meq/ Sodium Chloride 1,015 ml @ 75 mls/hr [id number] IV 06/09/18 19:00 07/09/18 18:59 06/09/18 19:00 Zolpidem Tartrate (Ambien) 5 mg HSPRN PRN ORAL Insomnia 06/07/18 22:00 06/14/18 21:59 BETZY VAN Jun 10, 2018 11:11
--- NOTE | 2018-06-10 11:12 | Endoscopy Procedure Note ---
Endoscopy Procedure Note General Indication for Procedure: anemia Procedures Performed: colonoscopy Operative Findings/Diagnosis: colon polyps - removed, rare tics, thrombosed ext hemorrhoid Specimen: yes Pt Tolerated Procedure Well: Yes Estimated Blood Loss: none Anesthesia Anesthesiologist: Abdiel damon Anesthesia: MAC Medications Medication Given: see anesthesia record Inserted Devices Implant(s) used?: No GI Core Measures 50 yrs or older w/o bx or poly: No 10yrs. F/U not recommended: No If not recommended, why?: Above average risk 10 yrs. F/U needed: No 18 years or older w/prev. colo: No <3yrs. since last colonoscopy: No Med reason:<3 yrs.: System Reason:<3 yrs.: Last colonoscopy >= to 3yrs: Yes Colton Lang MD Jun 10, 2018 11:12
--- NOTE | 2018-06-10 11:16 | Brief Operative Note ---
Immediate Post Operative Note Operative Note Chief Complaint: anemia Pre-op Diagnosis: anemia Procedure: colon/inj/polyp Post-op Diagnosis: colon polyps - removed, rare tics, thrombosed ext hemorrhoid Surgeon: ruba Anesthesiologist: diana damon Anesthesia: MAC, moderate sedation Specimen: none Complications: none Condition: unstable Fluids: see docs Estimated Blood Loss: none Drains: hemovac Implant(s) used?: No Colton Lang MD Jun 10, 2018 11:16
[2018-06-10] MEDS ORDERED: NS 275ml ONE (15:25)
--- NOTE | 2018-06-11 01:02 | Discharge Summary ---
DATE OF ADMISSION: 06/07/2018 DATE OF DISCHARGE: 06/10/2018 PERTINENT HISTORY: The patient presents with severe weakness and hemoglobin of 2.9 with no obvious bleeding according to the patient. She is having increasing shortness of breath. There is a history of gastritis, hypertension, HIV positive, and prior diagnosis of iron deficiency. PERTINENT PHYSICAL FINDINGS: GENERAL: The patient is alert. LUNGS: Clear. HEART: Regular rhythm. ABDOMEN: Soft. Liver and spleen not palpable. EXTREMITIES: No edema. COURSE IN THE HOSPITAL: The patient had severe anemia and was transfused. Labs are consistent with iron deficiency. She was given intravenous iron. She had upper endoscopy by Dr. Contreras showing large gastric folds but no acute bleeding. The colonoscopy on the day of discharge is done, report pending. It will be provided to the chart after this dictation. The patient felt much better, was no longer short of breath. Vital signs stable. Lungs, clear. Heart, regular rhythm. Abdomen nontender on the day of discharge. She was instructed to follow up in the office of Dr. Barksdale within a week. FINAL DIAGNOSES: 1. Iron-deficiency anemia, severe. 2. Large gastric folds and gastritis. 3. Human immunodeficiency virus positive. 4. Chronic obstructive pulmonary disease. 5. History of hypertension. DISCHARGE DISPOSITION: Home on a regular diet. MEDICATIONS: Per the discharge medication list. She was instructed to followup at Dr. Barksdale's office where she will receive intravenous iron and monitoring of her CBC. The results of the colonoscopy will be checked and any issues will be addressed in the office post discharge. Alec Barksdale M.D. DR: Yelitza JOB#: [id number] CC:
--- NOTE | 2018-06-11 06:02 | Procedure Note ---
DATE OF PROCEDURE: 06/10/2018 PROCEDURE: Colonoscopy with snare polypectomy as well as injection. SURGEON: Colton Lang M.D. ANESTHESIA: Please see the separate anesthesiologist notes for details. PRE-ENDOSCOPIC DIAGNOSIS: Anemia. POST-ENDOSCOPIC DIAGNOSES: 1. A 1 cm semi-pedunculated polyp in the distal descending colon, status post injection with LA view and then followed by snare polypectomy. 2. Diminutive polyp seen in the transverse colon, which was snared by pull technique, but specimen may not have been retrieved during the suction process. 3. Thrombosed external hemorrhoids. PROCEDURE IN DETAIL: The procedure, its risks, indications, alternatives, and possible complications were explained to the patient and informed consent was obtained. The patient had been sedated in the left lateral decubitus position, and a rectal exam was done, which showed a thrombosed external hemorrhoids. The colonoscope was then introduced into the rectum and advanced to the cecum and then 5 cm into the terminal ileum. The colonoscope was then gradually withdrawn and the mucosa was examined carefully. Examination of colonic mucosa revealed the semi-pedunculated polyp in the distal ascending colon, which was removed with a hot snare polypectomy after elevating it with an injection of eleview. There was also another small polyp measuring possibly 3 to 4 mm in the transverse colon, which was removed with a cold polypectomy technique. However, the specimen was small and could not clearly be retrieved. The remainder of the colonoscopic examination was unremarkable. Retroflexed view of the rectum was unremarkable. The colonoscope was removed. The patient was sent to recovery in good condition. COMPLICATIONS: None. RECOMMENDATIONS: 1. Follow up pathology results. 2. Follow up CBC. 3. Remainder of the care per Dr. Contreras. Colton Lang M.D. DR: JENI JOB#: [id number] CC: ANDREIA
== END 2018-06-10 15:26 | disposition home or self-care (01) | DRG 377 ==
LOC: EMR 11:55 → 2E 13:39 → EDBEDREQ 14:27 → EDBEDREQSVC 17:07 → EDBEDREQ 17:08 → ICU 18:57 → 2E 06-08 12:30
DX: K92.2 Gastrointestinal hemorrhage, unspecified (principal); B20 Human immunodeficiency virus [HIV] disease; D50.9 Iron deficiency anemia, unspecified; F17.200 Nicotine dependence, unspecified, uncomplicated; J44.9 Chronic obstructive pulmonary disease, unspecified; K29.70 Gastritis, unspecified, without bleeding; I10 Essential (primary) hypertension; Z88.1 Allergy status to other antibiotic agents; Z88.2 Allergy status to sulfonamides; K64.5 Perianal venous thrombosis; K63.5 Polyp of colon; Q40.2 Other specified congenital malformations of stomach
CPT/HCPCS: 36415; 36600; 71045; 80048; 80053; 81003; 82270; 82607; 82728; 82803; 83540; 83550; 83605; 83615; 83880; 84443; 84484; 85007; 85025; 85044; 85060; 85610; 85730; 86360; 86850; 86900; 86901; 86920; 87040; 87081; 87086; 93005; 94003; 94150; 94640; 94664; 94760; 99291; J7620; J8499

== ENCOUNTER 2018-10-11 12:01 | Inpatient (IN) | payer MEDICARE, MEDICAID ==
[~2018-10-11] VITALS: Ht 160 cm; Wt 51.7 kg
[~2018-10-11 12:01] MED LIST changes: +ADALAT20 MG ORAL; +LISINOPRIL20 MG ORAL; +NIFEDIPINE ER60 M2 ORAL; +NORCO 10-325 T1 EACH ORAL; +NORVIR100 MG ORAL; +OMEPRAZOLE40 M1 ORAL; +PREZISTA600 MG ORAL; +PREZISTA800 MG ORAL; +TRUVADA 200 MG1 EAC1 ORAL; +TYLENOL EXTRA500 MG ORAL; +VITAMIN B-12100 MCG ORAL
[2018-10-11 12:12] VITALS: BP 130/69
[2018-10-11 12:55] LABS: HEMATOCRIT 13.5 % (37.0-47.0); MEAN CORPUSCULAR VOLUME 77 FL (80-99); PLATELET COUNT 262 K/UL (150-450); RED BLOOD COUNT 1.76 M/UL (4.20-5.40); RED CELL DISTRIBUTION WIDTH 21.9 % (11.6-14.8); WHITE BLOOD COUNT 4.1 K/UL (4.8-10.8)
[2018-10-11 13:08] LABS: INR 0.9 (0.9-1.1)
[2018-10-11 13:10] LABS: ANION GAP 12 mmol/L (5-15); BLOOD UREA NITROGEN 15 mg/dL (7-18); CALCIUM 8.4 MG/DL (8.5-10.1); CARBON DIOXIDE 22 MMOL/L (21-32); CHLORIDE 112 MMOL/L (98-107); CREATININE 0.9 MG/DL (0.55-1.30); SODIUM 146 MMOL/L (136-145)
[2018-10-11 13:14] LABS: ALANINE AMINOTRANSFERASE 16 U/L (12-78); ALBUMIN 2.4 G/DL (3.4-5.0); ALBUMIN/GLOBULIN RATIO 0.5 (1.0-2.7); ALKALINE PHOSPHATASE 52 U/L (46-116); ASPARTATE AMINO TRANSFERASE 26 U/L (15-37); BILIRUBIN,TOTAL < 0.1 MG/DL (0.2-1.0)
[2018-10-11 13:28] LABS: HEMOGLOBIN 3.8 G/DL (12.0-16.0)
[2018-10-11 14:25] VITALS: BP 146/80
[2018-10-11 14:44] VITALS: BP 134/64
--- NOTE | 2018-10-11 14:53 | Emergency Room Report ---
History of Present Illness General Chief Complaint: Generalized Weakness Source: Patient Present Illness HPI 58-year-old female presents ED for evaluation. Complaining of weakness. History of iron deficiency anemia. Was scheduled to have iron transfusion last week but missed it. Denies fevers or chills. Denies pain. Denies any vaginal bleeding or rectal bleeding. No other aggravating relieving factors. Denies any other associated symptoms Allergies: Coded Allergies: SULFAMETHOXAZOLE (Verified Allergy, Unknown, 09/12/15) TRIMETHOPRIM (Verified Allergy, Unknown, 09/12/15) Patient History Past Medical History: HTN, COPD Past Surgical History: none Pertinent Family History: none Social History: Denies: smoking, alcohol use, drug use Now: No Immunizations: UTD Reviewed Nursing Documentation: PMH: Agreed; PSxH: Agreed Nursing Documentation-PMH Hx Hypertension: Yes Hx COPD: Yes Hx Cancer: No Hx Gastrointestinal Problems: Yes Hx Neurological Problems: No Review of Systems All Other Systems: negative except mentioned in HPI Physical Exam Vital Signs Date Time Temp Pulse Resp B/P (MAP) Pulse Ox O2 Delivery O2 Flow Rate FiO2 10/11/18 11:59 98.4 64 16 130/69 100 10/11/18 12:12 Room Air 99 Sp02 EP Interpretation: reviewed, normal General Appearance: no apparent distress, alert, GCS 15, non-toxic Head: normocephalic Eyes: bilateral eye normal inspection, bilateral eye PERRL ENT: normal ENT inspection Neck: normal inspection Respiratory: chest non-tender, lungs clear, normal breath sounds, speaking full sentences Cardiovascular #1: regular rate, rhythm, no edema Gastrointestinal: normal inspection Rectal: deferred Genitourinary: no CVA tenderness Musculoskeletal: normal inspection Neurologic: alert, oriented x3, responsive, motor strength/tone normal, sensory intact, speech normal Psychiatric: normal inspection Skin: normal inspection Lymphatic: normal inspection Procedures Critical Care Time Critical Care Time i. I feel this is a highly complex case requiring extensive working including EKG/Rhythm strip, Xray/CT/US, Blood/urine lab work, repeat exams while in ED, and administration of strong opiates/narcotics for pain control, admission to hospital or close patient follow up. Total time: 30 min bedside evaluation and treatment excludes procedures (EKG). Reason for critical care: severe anemia Possible complications: hypotension, hypertension, AK, shock, arrhythmias, metabolic acidosis, end organ damage, respiratory failure. Interventions: labs, ivfs, consultation with PMD, transfusion Course: Patient complaining weakness. History of anemia. Hemoglobin 3.8. Vital stable. No active bleeding. PRBCs ordered. Consultations: nursing staff, EMS, family Performed by: Dr Garcia Tolerated well condition = serious j. because of unstable vital signs this patient had a condition that could potentially threaten life or limb. I feel this is a critical patient who required my full attention while patient was considered critical. Total Critical Care Time excluding procedures was greater than 35 minutes Medical Decision Making Diagnostic Impression: Primary Impression: Severe anemia ER Course Hospital Course 58-year-old female presents to ED for evaluation of weakness. h/o anemia Differential diagnoses include: anemia requiring transfusion, microcytic anemia , macrocytic anemia, heavy blood loss Clinical course Patient placed on stretcher. After initial history and physical I ordered labs including CBC and type and screen. Labs- hemoglobin/hematocrit 3.8/13.5. Vital stable. No active bleeding. PRBCs ordered. Discussed findings with PMD Dr. Barksdale. discussed findings with patient. Diagnosis - severe anemia Admitted to SDU in serious condition Labs Test 10/11/18 12:30 White Blood Count 4.1 K/UL (4.8-10.8) Red Blood Count 1.76 M/UL (4.20-5.40) Hemoglobin 3.8 G/DL (12.0-16.0) Hematocrit 13.5 % (37.0-47.0) Mean Corpuscular Volume 77 FL (80-99) Mean Corpuscular Hemoglobin 21.4 PG (27.0-31.0) Mean Corpuscular Hemoglobin Concent 28.0 G/DL (32.0-36.0) Red Cell Distribution Width 21.9 % (11.6-14.8) Platelet Count 262 K/UL (150-450) Mean Platelet Volume 6.5 FL (6.5-10.1) Neutrophils (%) (Auto) % (45.0-75.0) Lymphocytes (%) (Auto) % (20.0-45.0) Monocytes (%) (Auto) % (1.0-10.0) Eosinophils (%) (Auto) % (0.0-3.0) Basophils (%) (Auto) % (0.0-2.0) Differential Total Cells Counted 100 Neutrophils % (Manual) 51 % (45-75) Lymphocytes % (Manual) 45 % (20-45) Monocytes % (Manual) 2 % (1-10) Eosinophils % (Manual) 2 % (0-3) Basophils % (Manual) 0 % (0-2) Band Neutrophils 0 % (0-8) Nucleated Red Blood Cells 1 /100 WBC Platelet Estimate Adequate Platelet Morphology Normal Hypochromasia 3+ Anisocytosis 3+ Microcytosis 2+ Tear Drop Cells Occasional Prothrombin Time 10.0 SEC (9.30-11.50) Prothromb Time International Ratio 0.9 (0.9-1.1) Activated Partial Thromboplast Time 19 SEC (23-33) Sodium Level 146 MMOL/L (136-145) Potassium Level 4.0 MMOL/L (3.5-5.1) Chloride Level 112 MMOL/L (98-107) Carbon Dioxide Level 22 MMOL/L (21-32) Anion Gap 12 mmol/L (5-15) Blood Urea Nitrogen 15 mg/dL (7-18) Creatinine 0.9 MG/DL (0.55-1.30) Estimat Glomerular Filtration Rate > 60 mL/min (>60) Glucose Level 102 MG/DL (74-106) Calcium Level 8.4 MG/DL (8.5-10.1) Total Bilirubin < 0.1 MG/DL (0.2-1.0) Aspartate Amino Transf (AST/SGOT) 26 U/L (15-37) Alanine Aminotransferase (ALT/SGPT) 16 U/L (12-78) Alkaline Phosphatase 52 U/L (46-116) Total Protein 6.9 G/DL (6.4-8.2) Albumin 2.4 G/DL (3.4-5.0) Globulin 4.5 g/dL Albumin/Globulin Ratio 0.5 (1.0-2.7) Last Vital Signs Date Time Temp Pulse Resp B/P (MAP) Pulse Ox O2 Delivery O2 Flow Rate FiO2 10/11/18 14:44 98.7 77 18 134/64 100 Room Air 10/11/18 12:12 99 Status: improved Disposition: ADMITTED INPATIENT Condition: Serious Referrals: Alec Barksdale MD (PCP) Jay Garcia MD Oct 11, 2018 14:53
[2018-10-11] MEDS ORDERED: Zolpidem 5mg tab ORAL PRN (15:30)
[2018-10-11] MEDS ORDERED: Milk of Magnesia 30ml Ud ORAL PRN (15:30)
[2018-10-11] MEDS ORDERED: Polyethylene Glycol 238gm bottle ORAL ONE (16:00)
[2018-10-11] MEDS ORDERED: Magnesium Citrate Liq Btl ORAL ONE (16:00)
[2018-10-11] MEDS ORDERED: Pantoprazole Inj IV SCH (16:00)
--- NOTE | 2018-10-11 16:03 | GI Initial Consult Note ---
History of Present Illness General Date patient seen: Oct 11, 2018 Time patient seen: 16:02 Reason for Hospitalization: Generalized Weakness Referring physician: ARY HOBSON Reason for Consultation: ANEMIA Present Illness HPI 58-year-old female presents ED for evaluation. Complaining of weakness. History of iron deficiency anemia. Was scheduled to have iron transfusion last week but missed it. Denies fevers or chills. Denies pain. Denies any vaginal bleeding or rectal bleeding. No other aggravating relieving factors. Denies any other associated symptoms GI consulted for anemia. Pt seen, awake A&Ox4 NAD with no active s/sx of N/V/ D. No active nor reported events of bleeding. Patient was admitted here back in May had both EGD/colonoscopy with gastritis hemorrhoids; no defined source of anemia. The patient states she had recent capsule endoscopy performed at [facility]. She presents today with severe anemia Hgb of 3.8, currently receiving blood. Summary Colonoscopy 05/2018 1. A 1 cm semi-pedunculated polyp in the distal descending colon, status post injection with LA view and then followed by snare polypectomy. 2. Diminutive polyp seen in the transverse colon, which was snared by pull technique, but specimen may not have been retrieved during the suction process. 3. Thrombosed external hemorrhoids. Home Meds Active Scripts Omeprazole (OMEPRAZOLE) 40 Mg Capsule.dr, 40 MG ORAL DAILY for 30 Days, #30 CAP Prov:Alec Hobson MD 06/10/18 Reported Medications Acetaminophen* (TYLENOL EXTRA STRENGTH*) 500 Mg Tablet, 500 MG ORAL Q6H PRN for Mild Pain/Temp > 100.5 06/07/18 Cyanocobalamin (Vitamin B-12) 100 Mcg Tablet, 100 MCG ORAL DAILY 06/07/18 Hydrocodone Bit/Acetaminophen 10-325* (NORCO 10-325*) 1 Each Tablet, 1 TAB ORAL Q6H PRN for For Pain PRN PAIN 06/07/18 Lisinopril (LISINOPRIL*) 20 Mg Tablet, 20 MG ORAL DAILY 06/07/18 Nifedipine* (NIFEDIPINE ER*) 60 Mg Tablet.er, 60 MG ORAL DAILY 06/07/18 Darunavir Ethanolate (PREZISTA) 800 Mg Tablet, 800 MG ORAL DAILY 06/07/18 Ritonavir* (NORVIR*) 100 Mg Capsule, 100 MG ORAL DAILY, #60 CAP 7/9/18 Emtricitabine/Tenofovir 200-300MG* (TRUVADA 200-300MG*) 1 Each Tablet, 1 TAB ORAL DAILY, TAB 06/07/18 Med list reviewed/reconciled: Yes Allergies: Coded Allergies: SULFAMETHOXAZOLE (Verified Allergy, Unknown, 09/12/15) TRIMETHOPRIM (Verified Allergy, Unknown, 09/12/15) Patient History History Provided By: Patient, Medical Record PMH Narrative Past Medical History: HTN, COPD Past Surgical History: none Pertinent Family History: none Social History: Denies: smoking, alcohol use, drug use Now: No Immunizations: UTD Reviewed Nursing Documentation: PMH: Agreed; PSxH: Agreed Nursing Documentation-PMH Hx Hypertension: Yes Hx COPD: Yes Hx Cancer: No Hx Gastrointestinal Problems: Yes Hx Neurological Problems: No Social History: Denies: smoking, alcohol use, drug use, other Review of Systems All Other Systems: negative except mentioned in HPI Physical Exam Vital Signs Date Time Temp Pulse Resp B/P (MAP) Pulse Ox O2 Delivery O2 Flow Rate FiO2 10/11/18 11:59 98.4 64 16 130/69 100 10/11/18 12:12 Room Air 99 Sp02 EP Interpretation: reviewed, normal Labs Laboratory Tests Test 10/11/18 12:30 White Blood Count 4.1 K/UL (4.8-10.8) L Red Blood Count 1.76 M/UL (4.20-5.40) L Hemoglobin 3.8 G/DL (12.0-16.0) *L Hematocrit 13.5 % (37.0-47.0) L Mean Corpuscular Volume 77 FL (80-99) L Mean Corpuscular Hemoglobin 21.4 PG (27.0-31.0) L Mean Corpuscular Hemoglobin Concent 28.0 G/DL (32.0-36.0) L Red Cell Distribution Width 21.9 % (11.6-14.8) H Platelet Count 262 K/UL (150-450) Mean Platelet Volume 6.5 FL (6.5-10.1) Neutrophils (%) (Auto) % (45.0-75.0) Lymphocytes (%) (Auto) % (20.0-45.0) Monocytes (%) (Auto) % (1.0-10.0) Eosinophils (%) (Auto) % (0.0-3.0) Basophils (%) (Auto) % (0.0-2.0) Differential Total Cells Counted 100 Neutrophils % (Manual) 51 % (45-75) Lymphocytes % (Manual) 45 % (20-45) Monocytes % (Manual) 2 % (1-10) Eosinophils % (Manual) 2 % (0-3) Basophils % (Manual) 0 % (0-2) Band Neutrophils 0 % (0-8) Nucleated Red Blood Cells 1 /100 WBC Platelet Estimate Adequate Platelet Morphology Normal Hypochromasia 3+ Anisocytosis 3+ Microcytosis 2+ Tear Drop Cells Occasional Prothrombin Time 10.0 SEC (9.30-11.50) Prothromb Time International Ratio 0.9 (0.9-1.1) Activated Partial Thromboplast Time 19 SEC (23-33) L Sodium Level 146 MMOL/L (136-145) H Potassium Level 4.0 MMOL/L (3.5-5.1) Chloride Level 112 MMOL/L (98-107) H Carbon Dioxide Level 22 MMOL/L (21-32) Anion Gap 12 mmol/L (5-15) Blood Urea Nitrogen 15 mg/dL (7-18) Creatinine 0.9 MG/DL (0.55-1.30) Estimat Glomerular Filtration Rate > 60 mL/min (>60) Glucose Level 102 MG/DL (74-106) Calcium Level 8.4 MG/DL (8.5-10.1) L Total Bilirubin < 0.1 MG/DL (0.2-1.0) L Aspartate Amino Transf (AST/SGOT) 26 U/L (15-37) Alanine Aminotransferase (ALT/SGPT) 16 U/L (12-78) Alkaline Phosphatase 52 U/L (46-116) Total Protein 6.9 G/DL (6.4-8.2) Albumin 2.4 G/DL (3.4-5.0) L Globulin 4.5 g/dL Albumin/Globulin Ratio 0.5 (1.0-2.7) L General Appearance: well appearing, no apparent distress, alert Head: normocephalic EENT: PERRL/EOMI, normal ENT inspection Neck: supple Respiratory: normal breath sounds, no respiratory distress Cardiovascular: normal rate Gastrointestinal: normal inspection, non tender, soft, normal bowel sounds, non -distended Rectal: deferred Genitourinary: no CVA tenderness Musculoskeletal: normal inspection, back normal Neurologic: normal inspection, alert, oriented x3, responsive Psychiatric: normal inspection, judgement/insight normal, memory normal Skin: normal inspection, normal color, no rash, warm/dry, palpation normal, well hydrated Lymphatic: normal inspection, no adenopathy Current Medications Current Medications Medications (Trade) Dose Ordered Sig/Paul Route PRN Reason Start Time Stop Time Status Last Admin Dose Admin Acetaminophen (Tylenol) 650 mg Q4H PRN ORAL Mild Pain (Pain Scale 1-3) 10/11/18 15:30 11/10/18 15:29 Acetaminophen (Tylenol) 650 mg Q4H PRN ORAL fever (temp>100.5 F) 10/11/18 15:30 11/10/18 15:29 Dextrose (Dextrose 50%) 25 ml Q30M PRN IV Hypoglycemia 10/11/18 15:30 11/10/18 15:29 Dextrose (Dextrose 50%) 50 ml Q30M PRN IV Hypoglycemia 10/11/18 15:30 11/10/18 15:29 Diphenhydramine HCl (Benadryl) 25 mg Q4H PRN ORAL Itching/Pruritis 10/11/18 15:30 11/10/18 15:29 Emtricitabine/ Tenofovir (Truvada 200/ 300mg) 1 tab DAILY ORAL 10/12/18 09:00 11/11/18 08:59 UNV Lisinopril (Prinivil) 20 mg Q12HR ORAL 10/11/18 21:00 11/10/18 20:59 Magnesium Hydroxide (Mom) 30 ml HSPRN PRN ORAL Constipation 10/11/18 15:30 11/10/18 15:29 Magnesium Citrate (Citrate Of Magnesia) 300 ml ONCE ONCE ORAL 10/11/18 16:00 10/11/18 16:01 Mirtazapine (Remeron) 15 mg BEDTIME ORAL 10/11/18 21:00 11/10/18 20:59 Ondansetron HCl (Zofran) 4 mg Q6H PRN IVP Nausea & Vomiting 10/11/18 15:30 11/10/18 15:29 Pantoprazole (Protonix) 40 mg DAILY IV 10/12/18 09:00 11/11/18 08:59 Pantoprazole (Protonix) 40 mg ONCE IV 10/11/18 16:00 10/11/18 17:00 Polyethylene Glycol (Miralax) 238 gm ONCE ONCE ORAL 10/11/18 16:00 10/11/18 16:01 Ritonavir (Norvir) 100 mg DAILY ORAL 10/12/18 09:00 11/11/18 08:59 UNV Sucralfate (Carafate) 1 gm FOUR TIMES A DAY ORAL 10/11/18 18:00 11/10/18 17:59 Zolpidem Tartrate (Ambien) 5 mg DAILYPRN PRN ORAL Insomnia 10/11/18 15:30 10/18/18 15:29 GI: Plan Problems: (1) GI bleed (2) Iron (Fe) deficiency anemia (3) Severe anemia Plan obtain SBCE records from [facility] recommend hematology consult anemia work up OB stool r/o GI bleed monitor H&H, prn transfusions bowel regime regular diet ppi fu labs Discussed with Dr. Contreras. Thank you for this patient referral, we will follow. The patient was seen and examined at bedside and all new and available data was reviewed in the patients chart. I agree with the above findings, impression and plan. (Patient seen earlier today. Signature stamp does not reflect patient encounter time.). - MD Mely Álvarez,[facility] [employer] DRIVER Oct 11, 2018 16:03
[2018-10-11] MEDS: Sucralfate 1gm tab ORAL SCH ×2 (17:30→20:37)
[2018-10-11 20:00] VITALS: BP 155/85
[2018-10-11] MEDS: Lisinopril 20mg tab ORAL SCH (20:38)
--- NOTE | 2018-10-11 21:46 | History and Physical Report ---
DATE OF ADMISSION: 10/11/2018 CHIEF COMPLAINT AND REASON FOR HOSPITALIZATION: The patient admitted for weakness and severe anemia. HISTORY OF PRESENT ILLNESS: The patient is a 58-year-old lady, who has been hospitalized in the past with severe her iron-deficiency anemia and likely chronic gastrointestinal bleeding. She is also HIV positive, has hypertension, COPD, HIV. The patient has had generalized weakness and dyspnea on exertion. She has received intravenous iron in my office over the past few months and her latest hemoglobin was 9.2, I believe on August 24. The patient has not seen any rectal bleeding but has dark brown stools, not melena in color. On her prior admission in May of this year, she had an endoscopy showing gastric folds and some gastritis. ALLERGIES: TO BACTRIM. MEDICATIONS: Include omeprazole 40 mg daily, Carafate 1 g b.i.d., Norvir one tab daily, Prezista 800 mg daily, Truvada one tablet daily, lisinopril 40 mg daily, ProAir inhaler as needed, mirtazapine 15 mg at bedtime p.r.n. HABITS: She is a cigarette smoker most of her life but cut down to less than a pack a week lately. No alcohol in excess or drugs. SYSTEM REVIEW: HEAD, EYES, EARS, NOSE, AND THROAT: No known problems with vision or hearing. ENDOCRINE: No diabetes or thyroid disease. PULMONARY: History of COPD, uses inhalers as needed. No tuberculosis. CARDIAC: No angina, [place], palpitations, CHF. GASTROINTESTINAL: See above. GENITOURINARY: No vaginal bleeding. No dysuria or hematuria. NEUROLOGIC: No CVA, syncope, or seizures. PHYSICAL EXAMINATION: GENERAL: The patient is alert lady, in no acute distress. VITAL SIGNS: Temperature 97, pulse 77, respirations 18, and blood pressure 134/64, pulse ox 100% on room air. HEENT: Sclerae are nonicteric. Ocular motions intact in all directions. Oral mucosa is moist. NECK: No adenopathy or thyroid enlargement. LUNGS: Clear. Distant breath sounds. She is mildly tachypneic. ABDOMEN: Soft. I am unable to feel liver or spleen. EXTREMITIES: No edema, cyanosis, or clubbing. RECTAL: Deferred. 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 NEUROLOGIC: She is alert and oriented. Cranial nerves are intact. PERTINENT LABORATORY DATA: White count 4.1, hemoglobin 3.8, hematocrit 13.5, platelets 262, microcytic indices. Electrolytes normal. Liver enzymes normal. Albumin is 2.4. IMPRESSION: 1. Anemia likely combined. 2. Anemia of iron deficiency and secondary to blood loss and possibly related to HIV and HIV medications. 3. Dyspnea secondary to above. 4. COPD. 5. Hypertension. PLAN: The patient will be transfused as she agrees in view of her severe anemia symptomatic with a gastrointestinal consult again in view of a likelihood of recurrent upper GI bleeding. Alec Barksdale M.D. DR: Yelitza JOB#: [id number] CC:
[2018-10-12] VITALS: BP 157/77
[2018-10-12 04:00] VITALS: BP 156/86
[2018-10-12 05:41] LABS: HEMATOCRIT 22.9 % (37.0-47.0); HEMOGLOBIN 7.5 G/DL (12.0-16.0); MEAN CORPUSCULAR VOLUME 81 FL (80-99); PLATELET COUNT 208 K/UL (150-450); RED BLOOD COUNT 2.84 M/UL (4.20-5.40); RED CELL DISTRIBUTION WIDTH 18.2 % (11.6-14.8); WHITE BLOOD COUNT 4.4 K/UL (4.8-10.8)
[2018-10-12 06:04] LABS: CREATINE KINASE 36 U/L (26-308)
[2018-10-12 06:14] LABS: ALANINE AMINOTRANSFERASE 9 U/L (12-78); ALBUMIN 2.2 G/DL (3.4-5.0); ALBUMIN/GLOBULIN RATIO 0.6 (1.0-2.7); ALKALINE PHOSPHATASE 41 U/L (46-116); ANION GAP 9 mmol/L (5-15); ASPARTATE AMINO TRANSFERASE 16 U/L (15-37); BILIRUBIN,TOTAL 0.3 MG/DL (0.2-1.0); BLOOD UREA NITROGEN 14 mg/dL (7-18); CALCIUM 7.9 MG/DL (8.5-10.1); CARBON DIOXIDE 20 MMOL/L (21-32); CHLORIDE 114 MMOL/L (98-107); CREATININE 0.8 MG/DL (0.55-1.30); FERRITIN 6 NG/ML (8-388); POTASSIUM 3.8 MMOL/L (3.5-5.1); SODIUM 142 MMOL/L (136-145)
[2018-10-12 07:57] LABS: % IRON SATURATION 8 % (15-50); IRON 28 ug/dL (50-175); TOTAL IRON BINDING CAPACITY 348 ug/dL (250-450)
[2018-10-12 08:00] VITALS: BP 142/75
[2018-10-12] MEDS: Sucralfate 1gm tab ORAL SCH ×4 (09:00→21:32)
[2018-10-12] MEDS ORDERED: Pantoprazole Inj IV SCH (09:00)
[2018-10-12] MEDS ORDERED: Ritonavir 100mg tab ORAL SCH (09:00)
[2018-10-12] MEDS: Lisinopril 20mg tab ORAL SCH ×2 (09:00→21:33)
[2018-10-12 12:00] VITALS: BP 158/89
--- NOTE | 2018-10-12 13:39 | GI Progress Note ---
Assessment/Plan Problems: (1) GI bleed ICD Codes: K92.2 - Gastrointestinal hemorrhage, unspecified SNOMED: 68599578 (2) Iron (Fe) deficiency anemia ICD Codes: D50.9 - Iron deficiency anemia, unspecified SNOMED: 75695969 (3) Severe anemia ICD Codes: D64.9 - Anemia, unspecified SNOMED: 092486548 Status: unchanged Status Narrative Discussed with Dr. Contreras. Assessment/Plan s/p recent EGD/colonoscopy with no obvious source of bleed patient had recent SBCE at [facility], unremarkable per patient >> will obtain records anemia work up >> iron deficiency recommend hematology consult venofer OB stool r/o GI bleed monitor H&H, prn transfusions bowel regime regular diet ppi fu labs The patient was seen and examined at bedside and all new and available data was reviewed in the patients chart. I agree with the above findings, impression and plan. (Patient seen earlier today. Signature stamp does not reflect patient encounter time.). - Hector Contreras MD Subjective Gastrointestinal/Abdominal: Reports: no symptoms Objective Last 24 Hour Vital Signs Date Time Temp Pulse Resp B/P (MAP) Pulse Ox O2 Delivery O2 Flow Rate FiO2 10/12/18 12:00 Room Air 10/12/18 09:00 142/75 10/12/18 08:00 69 10/12/18 08:00 Room Air 10/12/18 08:00 98.1 69 20 142/75 (97) 98 10/12/18 04:00 Room Air 10/12/18 04:00 97.5 73 20 156/86 (109) 96 10/12/18 04:00 74 10/12/18 00:00 74 10/12/18 00:00 98.9 72 20 157/77 (103) 100 10/12/18 00:00 Room Air 10/11/18 20:38 155/85 10/11/18 20:00 97.7 79 20 155/85 (108) 100 10/11/18 20:00 75 10/11/18 20:00 Room Air 10/11/18 16:00 Room Air 10/11/18 15:30 79 10/11/18 15:28 Room Air 10/11/18 15:11 98.7 77 18 134/64 100 Room Air 99 10/11/18 14:44 98.7 77 18 134/64 100 Room Air 10/11/18 14:40 98.7 77 18 10/11/18 14:25 99.1 81 20 10/11/18 14:25 99.1 81 20 146/80 100 Room Air Intake and Output 10/11/18 10/12/18 18:59 06:59 Intake Total 1350 ml 250 ml Balance 1350 ml 250 ml Intake Oral 250 ml IV Total 1000 ml Blood Product 350 ml # Voids 3 6 Laboratory Tests Test 10/12/18 03:30 White Blood Count 4.4 K/UL (4.8-10.8) L Red Blood Count 2.84 M/UL (4.20-5.40) L Hemoglobin 7.5 G/DL (12.0-16.0) #L Hematocrit 22.9 % (37.0-47.0) #L Mean Corpuscular Volume 81 FL (80-99) Mean Corpuscular Hemoglobin 26.5 PG (27.0-31.0) L Mean Corpuscular Hemoglobin Concent 32.8 G/DL (32.0-36.0) Red Cell Distribution Width 18.2 % (11.6-14.8) H Platelet Count 208 K/UL (150-450) Mean Platelet Volume 7.2 FL (6.5-10.1) Neutrophils (%) (Auto) % (45.0-75.0) Lymphocytes (%) (Auto) % (20.0-45.0) Monocytes (%) (Auto) % (1.0-10.0) Eosinophils (%) (Auto) % (0.0-3.0) Basophils (%) (Auto) % (0.0-2.0) Differential Total Cells Counted 100 Neutrophils % (Manual) 57 % (45-75) Lymphocytes % (Manual) 33 % (20-45) Monocytes % (Manual) 9 % (1-10) Eosinophils % (Manual) 1 % (0-3) Basophils % (Manual) 0 % (0-2) Band Neutrophils 0 % (0-8) Platelet Estimate Adequate Platelet Morphology Normal Hypochromasia 3+ Anisocytosis 2+ Spherocytes 1+ Reticulocyte Count 1.8 % (0.0-2.0) Prothrombin Time 10.1 SEC (9.30-11.50) Prothromb Time International Ratio 1.0 (0.9-1.1) Activated Partial Thromboplast Time 24 SEC (23-33) Sodium Level 142 MMOL/L (136-145) Potassium Level 3.8 MMOL/L (3.5-5.1) Chloride Level 114 MMOL/L (98-107) H Carbon Dioxide Level 20 MMOL/L (21-32) L Anion Gap 9 mmol/L (5-15) Blood Urea Nitrogen 14 mg/dL (7-18) Creatinine 0.8 MG/DL (0.55-1.30) Estimat Glomerular Filtration Rate > 60 mL/min (>60) Glucose Level 95 MG/DL (74-106) Calcium Level 7.9 MG/DL (8.5-10.1) L Iron Level 28 ug/dL (50-175) L Total Iron Binding Capacity 348 ug/dL (250-450) Percent Iron Saturation 8 % (15-50) L Unsaturated Iron Binding 320 ug/dL (112-346) Ferritin 6 NG/ML (8-388) L Total Bilirubin 0.3 MG/DL (0.2-1.0) Aspartate Amino Transf (AST/SGOT) 16 U/L (15-37) Alanine Aminotransferase (ALT/SGPT) 9 U/L (12-78) L Alkaline Phosphatase 41 U/L (46-116) L Total Creatine Kinase 36 U/L (26-308) Total Protein 6.0 G/DL (6.4-8.2) L Albumin 2.2 G/DL (3.4-5.0) L Globulin 3.8 g/dL Albumin/Globulin Ratio 0.6 (1.0-2.7) L Carcinoembryonic Antigen Pending Vitamin B12 Level 261 PG/ML (193-986) Folate 6.6 NG/ML (8.6-58.9) L Thyroid Stimulating Hormone (TSH) 1.940 uiU/mL (0.358-3.740) Free Thyroxine 0.74 NG/DL (0.76-1.46) L Height (Feet): 5 Height (Inches): 3.00 Weight (Pounds): 114 General Appearance: WD/WN, no apparent distress, alert Cardiovascular: normal rate Respiratory/Chest: normal breath sounds, no respiratory distress Abdominal Exam: normal bowel sounds, non tender, soft Extremities: normal range of motion, non-tender Bety Boone NP Oct 12, 2018 13:38
--- NOTE | 2018-10-12 14:09 | General Progress Note ---
Assessment/Plan Problem List: (1) HIV (human immunodeficiency virus infection) ICD Codes: B20 - Human immunodeficiency virus [HIV] disease SNOMED: 24890990 (2) Iron (Fe) deficiency anemia ICD Codes: D50.9 - Iron deficiency anemia, unspecified SNOMED: 53370672 (3) GI bleed ICD Codes: K92.2 - Gastrointestinal hemorrhage, unspecified SNOMED: 16169774 Assessment/Plan agrees to transfuse, treat gastritis agrees to bone marrow Subjective Constitutional: Reports: weakness HEENT: Reports: no symptoms Cardiovascular: Reports: no symptoms Respiratory: Reports: shortness of breath Gastrointestinal/Abdominal: Reports: no symptoms Genitourinary: Reports: no symptoms Neurologic/Psychiatric: Reports: no symptoms Endocrine: Reports: no symptoms Allergies: Coded Allergies: SULFAMETHOXAZOLE (Verified Allergy, Unknown, 09/12/15) TRIMETHOPRIM (Verified Allergy, Unknown, 09/12/15) Objective Last 24 Hour Vital Signs Date Time Temp Pulse Resp B/P (MAP) Pulse Ox O2 Delivery O2 Flow Rate FiO2 10/12/18 12:00 98.2 67 20 158/89 (112) 100 10/12/18 12:00 72 10/12/18 12:00 Room Air 10/12/18 09:00 142/75 10/12/18 08:00 69 10/12/18 08:00 Room Air 10/12/18 08:00 98.1 69 20 142/75 (97) 98 10/12/18 04:00 Room Air 10/12/18 04:00 97.5 73 20 156/86 (109) 96 10/12/18 04:00 74 10/12/18 00:00 74 10/12/18 00:00 98.9 72 20 157/77 (103) 100 10/12/18 00:00 Room Air 10/11/18 20:38 155/85 10/11/18 20:00 97.7 79 20 155/85 (108) 100 10/11/18 20:00 75 10/11/18 20:00 Room Air 10/11/18 16:00 Room Air 10/11/18 15:30 79 10/11/18 15:28 Room Air 10/11/18 15:11 98.7 77 18 134/64 100 Room Air 99 10/11/18 14:44 98.7 77 18 134/64 100 Room Air 10/11/18 14:40 98.7 77 18 10/11/18 14:25 99.1 81 20 10/11/18 14:25 99.1 81 20 146/80 100 Room Air Intake and Output 10/11/18 10/12/18 18:59 06:59 Intake Total 1350 ml 250 ml Balance 1350 ml 250 ml Intake Oral 250 ml IV Total 1000 ml Blood Product 350 ml # Voids 3 6 Laboratory Tests 10/12/18 03:30: White Blood Count 4.4L, Red Blood Count 2.84L, Hemoglobin 7.5#L, Hematocrit 22.9 #L, Mean Corpuscular Volume 81, Mean Corpuscular Hemoglobin 26.5L, Mean Corpuscular Hemoglobin Concent 32.8, Red Cell Distribution Width 18.2H, Platelet Count 208, Mean Platelet Volume 7.2, Neutrophils (%) (Auto) , Lymphocytes (%) (Auto) , Monocytes (%) (Auto) , Eosinophils (%) (Auto) , Basophils (%) (Auto) , Differential Total Cells Counted 100, Neutrophils % ( Manual) 57, Lymphocytes % (Manual) 33, Monocytes % (Manual) 9, Eosinophils % ( Manual) 1, Basophils % (Manual) 0, Band Neutrophils 0, Platelet Estimate Adequate, Platelet Morphology Normal, Hypochromasia 3+, Anisocytosis 2+, Spherocytes 1+, Reticulocyte Count 1.8, Prothrombin Time 10.1, Prothromb Time International Ratio 1.0, Activated Partial Thromboplast Time 24, Sodium Level 142, Potassium Level 3.8, Chloride Level 114H, Carbon Dioxide Level 20L, Anion Gap 9, Blood Urea Nitrogen 14, Creatinine 0.8, Estimat Glomerular Filtration Rate > 60, Glucose Level 95, Calcium Level 7.9L, Iron Level 28L, Total Iron Binding Capacity 348, Percent Iron Saturation 8L, Unsaturated Iron Binding 320, Ferritin 6L, Total Bilirubin 0.3, Aspartate Amino Transf (AST/SGOT) 16, Alanine Aminotransferase (ALT/SGPT) 9L, Alkaline Phosphatase 41L, Total Creatine Kinase 36, Total Protein 6.0L, Albumin 2.2L, Globulin 3.8, Albumin/Globulin Ratio 0.6L , Carcinoembryonic Antigen [Pending], Vitamin B12 Level 261, Folate 6.6L, Thyroid Stimulating Hormone (TSH) 1.940, Free Thyroxine 0.74L Height (Feet): 5 Height (Inches): 3.00 Weight (Pounds): 114 General Appearance: WD/WN EENT: normal ENT inspection Neck: non-tender Cardiovascular: normal rate Respiratory/Chest: lungs clear Abdomen: normal bowel sounds, non tender Edema: no edema noted Arm (L), no edema noted Arm (R), no edema noted Leg (L), no edema noted Leg (R), no edema noted Pedal (L), no edema noted Pedal (R), no edema noted 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
--- NOTE | 2018-10-12 15:07 | Cardiology Report ---
APPROVED REPORT EKG Measurement Heart [id number] Normal sinus rhythm Septal infarct, age undetermined Abnormal ECG
[2018-10-12 16:00] VITALS: BP 141/75
[2018-10-12 20:00] VITALS: BP 139/92
[2018-10-12] MEDS ORDERED: Milk of Magnesia 30ml Ud ORAL PRN (21:00)
[2018-10-12] MEDS ORDERED: Zolpidem 5mg tab ORAL PRN (21:00)
[2018-10-13] VITALS: BP 136/86
[2018-10-13 04:48] VITALS: BP 160/84
[2018-10-13 06:36] LABS: BASOPHILS % (AUTO) 0.6 % (0.0-2.0); EOSINOPHILS % (AUTO) 2.3 % (0.0-3.0); HEMATOCRIT 27.7 % (37.0-47.0); LYMPHOCYTES % (AUTO) 37.9 % (20.0-45.0); MEAN CORPUSCULAR VOLUME 81 FL (80-99); MONOCYTES % (AUTO) 7.8 % (1.0-10.0); NEUTROPHILS % (AUTO) 51.4 % (45.0-75.0); PLATELET COUNT 218 K/UL (150-450); RED BLOOD COUNT 3.41 M/UL (4.20-5.40); RED CELL DISTRIBUTION WIDTH 17.8 % (11.6-14.8)
[2018-10-13 07:22] LABS: ANION GAP 9 mmol/L (5-15); CARBON DIOXIDE 24 MMOL/L (21-32); CHLORIDE 111 MMOL/L (98-107); SODIUM 144 MMOL/L (136-145)
[2018-10-13 07:53] LABS: BLOOD UREA NITROGEN 13 mg/dL (7-18); CREATININE 0.9 MG/DL (0.55-1.30)
[2018-10-13 08:02] VITALS: BP 163/90
[2018-10-13] MEDS: Lisinopril 20mg tab ORAL SCH (08:28)
[2018-10-13] MEDS: Sucralfate 1gm tab ORAL SCH ×3 (08:28→17:11)
[2018-10-13] MEDS ORDERED: Pantoprazole Inj IV SCH (09:00)
[2018-10-13] MEDS ORDERED: Ritonavir 100mg tab ORAL SCH (09:00)
[2018-10-13] MEDS ORDERED: LORazepam 1mg tab NG ONE (10:45)
[2018-10-13] MEDS ORDERED: HYDROmorphone 1mg/ml Carpuject IVP PRN (10:45)
--- NOTE | 2018-10-13 10:51 | GI Progress Note ---
Assessment/Plan Problems: (1) GI bleed ICD Codes: K92.2 - Gastrointestinal hemorrhage, unspecified SNOMED: 02046806 (2) Iron (Fe) deficiency anemia ICD Codes: D50.9 - Iron deficiency anemia, unspecified SNOMED: 99370850 (3) Severe anemia ICD Codes: D64.9 - Anemia, unspecified SNOMED: 401792193 Status: stable Status Narrative Discussed with Dr. Contreras. 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 I agree with the above findings, impression and plan. (Patient seen earlier today. Signature stamp does not reflect patient encounter time.). - Hector Contreras MD Subjective Subjective feels better Objective Last 24 Hour Vital Signs Date Time Temp Pulse Resp B/P (MAP) Pulse Ox O2 Delivery O2 Flow Rate FiO2 10/13/18 08:28 163/90 10/13/18 08:04 Room Air 10/13/18 08:02 98.2 63 163/90 (114) 10/13/18 04:48 99.0 66 16 160/84 (109) 100 10/13/18 00:00 98.9 82 18 136/86 (103) 97 10/12/18 21:33 139/92 10/12/18 20:00 Room Air 10/12/18 20:00 99.3 67 19 139/92 (108) 97 78 10/12/18 16:00 Room Air 10/12/18 16:00 99.0 67 22 141/75 (97) 97 10/12/18 16:00 71 10/12/18 12:00 98.2 67 20 158/89 (112) 100 10/12/18 12:00 72 10/12/18 12:00 Room Air Intake and Output 10/12/18 10/13/18 19:00 07:00 # Voids 3 2 Laboratory Tests Test 10/13/18 00:13 10/13/18 05:10 Stool Occult Blood Pending White Blood Count 4.0 K/UL (4.8-10.8) L Red Blood Count 3.41 M/UL (4.20-5.40) L Hemoglobin 9.0 G/DL (12.0-16.0) L Hematocrit 27.7 % (37.0-47.0) L Mean Corpuscular Volume 81 FL (80-99) Mean Corpuscular Hemoglobin 26.4 PG (27.0-31.0) L Mean Corpuscular Hemoglobin Concent 32.5 G/DL (32.0-36.0) Red Cell Distribution Width 17.8 % (11.6-14.8) H Platelet Count 218 K/UL (150-450) Mean Platelet Volume 6.4 FL (6.5-10.1) L Neutrophils (%) (Auto) 51.4 % (45.0-75.0) Lymphocytes (%) (Auto) 37.9 % (20.0-45.0) Monocytes (%) (Auto) 7.8 % (1.0-10.0) Eosinophils (%) (Auto) 2.3 % (0.0-3.0) Basophils (%) (Auto) 0.6 % (0.0-2.0) Sodium Level 144 MMOL/L (136-145) Potassium Level 4.0 MMOL/L (3.5-5.1) Chloride Level 111 MMOL/L (98-107) H Carbon Dioxide Level 24 MMOL/L (21-32) Anion Gap 9 mmol/L (5-15) Blood Urea Nitrogen 13 mg/dL (7-18) Creatinine 0.9 MG/DL (0.55-1.30) Estimat Glomerular Filtration Rate > 60 mL/min (>60) Glucose Level 88 MG/DL (74-106) Calcium Level 8.0 MG/DL (8.5-10.1) L Height (Feet): 5 Height (Inches): 3.00 Weight (Pounds): 114 General Appearance: WD/WN, no apparent distress, alert Cardiovascular: normal rate Respiratory/Chest: normal breath sounds, no respiratory distress Abdominal Exam: normal bowel sounds, non tender, soft Extremities: normal range of motion, non-tender Bety Boone [employer] Oct 13, 2018 10:51
[2018-10-13] MEDS ORDERED: LORazepam 1mg tab ORAL ONE (11:00)
[2018-10-13] MEDS ORDERED: LORazepam Inj 2mg/ml 1ml IV SCH ×2 (11:10→11:45)
[2018-10-13] MEDS ORDERED: Hydromorphone 0.5mg/0.5ml inj IVP SCH (11:45)
[2018-10-13 12:00] VITALS: BP 154/95
[2018-10-13] MEDS ORDERED: Lidocaine 1% Plain 30 ml INJ ONE (12:30)
--- NOTE | 2018-10-13 12:43 | PATHOLOGY BONE BARROW ---
Bone Marrow Aspirate & Biopsy . 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 CONSENT: Consent was previously obtained from the patient. The risks and benefits were re-explained. The patient agreed to undergo the procedure. A TIMEOUT WAS EXECUTED: Yes. PROCEDURE SUMMARY: The patient was laid in the prone position. The right posterior iliac crest was prepped and draped in a sterile fashion. The crest of the posterior iliac was located, and the skin as well as surface of the bone was anesthetized with 7cc of 1% lidocaine. An aspirating needle was introduced, the bone marrow aspirate was obtained without any difficulty. This was withdrawn the coring needle was advanced into the bone cavity. A bone marrow biopsy was obtained without any complications. ESTIMATED BLOOD LOSS: Negligible REPORTS TO FOLLOW Nelsy Ramirez Oct 13, 2018 12:43
[2018-10-13 16:00] VITALS: BP 171/88
--- NOTE | 2018-10-13 17:03 | Cardiology Report ---
APPROVED REPORT EKG Measurement Heart [id number] 186P58 [id number] Normal sinus rhythm Anterior infarct, age undetermined Abnormal ECG
[2018-10-13 19:20] VITALS: BP 170/86
[2018-10-13] MEDS ORDERED: Iron Sucrose 100 MG in NS 55 ML IV SCH ×4 (21:00)
--- NOTE | 2018-10-13 22:45 | Discharge Summary ---
DATE OF ADMISSION: 10/11/2018 DATE OF DISCHARGE: 10/13/2018 HISTORY: The patient presents with severe anemia. She has had anemia in the past with some iron deficiency. Her hemoglobin was 3.8 and hematocrit 13.5 on admission and 9.1 and 27.7 on discharge. PERTINENT PHYSICAL FINDINGS: LUNGS: Clear. HEART: Regular rhythm. ABDOMEN: Soft. No focal tenderness. EXTREMITIES: No edema. COURSE IN THE HOSPITAL: The patient has received transfusion in the hospital. There was one occult blood stool positive. The patient declined GI studies as she has had this before. She was placed on antiulcer regimen and after detailed discussion, the bone marrow was done to look for other sources of anemia other than gastrointestinal bleeding. The patient was discharged home in improved condition. FINAL DIAGNOSES: 1. Severe anemia with iron deficiency. 2. stool occult blood positive. 3. History of gastritis. 4. COPD. 5. HIV positive. DISCHARGE DISPOSITION: Home on a regular diet. MEDICATIONS: Per the discharge medication list. She is to see Dr. Barksdale next week for review of her labs and bone marrow and possible further treatment as needed. Alec Barksdale M.D. DR: Yelitza JOB#: [id number] CC:
== END 2018-10-13 19:35 | disposition home or self-care (01) | DRG 977 ==
LOC: EDBD 12:01 → EMR 12:50 → EDBEDREQSVC 13:35 → EDBEDREQ 13:35 → 2W 13:50 → EDBEDREQ 13:57 → 3E 10-12 20:29
PROC: 30233N1 Transfusion of Nonautologous Red Blood Cells into Peripheral Vein, Percutaneous Approach (ICD-10-PCS; principal; 2018-10-11)
DX: D50.9 Iron deficiency anemia, unspecified (principal); B20 Human immunodeficiency virus [HIV] disease; K92.2 Gastrointestinal hemorrhage, unspecified; F17.200 Nicotine dependence, unspecified, uncomplicated; I10 Essential (primary) hypertension; J44.9 Chronic obstructive pulmonary disease, unspecified; Z88.1 Allergy status to other antibiotic agents
CPT/HCPCS: 36415; 80048; 80053; 82270; 82378; 82550; 82607; 82728; 82746; 83540; 83550; 84439; 84443; 85007; 85025; 85044; 85610; 85730; 86850; 86900; 86901; 86920; 93005; 96361; 96365; 99291